=== PATIENT | female | born 1950 | race Caucasian/White ===

== ENCOUNTER → 2017-12-27 | Outpatient (CLI) | payer MEDICARE, BC ==
--- NOTE | 2017-12-30 09:34 | XCELERA REPORT ---
[address] [address] Lower Extremity Arterial Evaluation Name: OJ ANDUJAR Age: 67 yrs Gender: Female : 1950 Patient Status: Outpatient Patient Location: Study Date: 12/27/2017 01:38 PM Procedure: A color flow and duplex scan of the lower extremity arteries was performed bilaterally with velocity and waveform anaylsis. Ankle brachial indicies performed. Reason For Study: PVD Ordering Physician: FRANCESCO RUVALCABA Performed By: Jae Estevez Measurements and Calculations Right Left WARP TESTER PSV 170.6 132.7 cm/sec Prox PFA PSV -248.3 -120.8 cm/sec Prox SFA PSV 158.1 168.9 cm/sec Mid SFA PSV -159.1 -142.4 cm/sec Dist SFA PSV -105.5 -103.7 cm/sec Prox Pop A PSV 92.6 89.9 cm/sec Dist CHELI PSV 92.3 95.9 cm/sec Dist DISPATCH MANAGER PSV 72.0 97.6 cm/sec Frankie Pedis PSV -30.9 -104.2 cm/sec Right Side Arterial Evaluation Normal velocity and triphasic waveforms noted from the Common Femoral artery to the anterior tibial .Biphasic with increased velocity in the Deep Femora artery in the Dorsalis Pedis. 20-49 % stenosis at the Deep Femoral artery. Sequential disease in the Dorsalis Pedis. Ankle Brachial index is 1.14. Left Side Arterial Evaluation Normal velocity and triphasic waveforms noted from the Common Femoral artery to the infrageniculate vessels. 0 % stenosis. Ankle Brachial index is 1.15. Interpretation Summary Mild hemodynamically significant lesions in the right lower extremity only, on duplex imaging, at rest. No hemodynamically significant lesions in the left lower extremity only, on duplex imaging, at rest. : FRANCESCO RUVALCABA > Yash Franklin
== END ==
LOC: SP 13:21
PROVIDERS: ATTEND Podiatrist Foot & Ankle Surgery
DX: I73.9 Peripheral vascular disease, unspecified (principal)
CPT/HCPCS: 93925

== ENCOUNTER → 2018-04-18 | Outpatient (CLI) | payer MEDICARE, BC ==
[2018-04-18 13:57] LABS: ABSOLUTE BASOPHILS # (AUTO) 0.1 10^3/uL (0.0-0.2); ABSOLUTE EOSINOPHILS # (AUTO) 0.2 10^3/uL (0.0-0.6); ABSOLUTE LYMPHOCYTES (AUTO) 1.7 10^3/uL (0.5-4.7); ABSOLUTE MONOCYTES (AUTO) 0.3 10^3/uL (0.1-1.4); ABSOLUTE NEUT (AUTO) 4.7 10^3/uL (1.7-8.2); EOSINOPHILS % (AUTO) 2.8 % (0-6); HEMATOCRIT 39.4 % (36.0-47.0); HEMOGLOBIN 13.4 g/dL (12.0-15.5); LYMPHOCYTES % (AUTO) 24.9 % (13-45); MEAN CORPUSCULAR VOLUME 88 fl (80-97); MONOCYTES % (AUTO) 3.7 % (3-13); PLATELET COUNT 223 10^3/uL (150-450); RED BLOOD COUNT 4.47 10^6/uL (3.72-5.28); RED CELL DISTRIBUTION WIDTH 12.9 % (11.5-14.0); SEGMENTED NEUTROPHILS % (AUTO) 67.6 % (42-78); TOTAL CELLS COUNTED % (AUTO) 100 %; WHITE BLOOD COUNT 6.9 10^3/uL (4.0-10.5)
[2018-04-18 14:23] LABS: ALANINE AMINOTRANSFERASE 25 U/L (9-52); ALBUMIN 3.7 g/dL (3.5-5.0); ALKALINE PHOSPHATASE 69 U/L (38-126); AMYLASE 55 U/L (30-110); ANION GAP 12 (5-19); ASPARTATE AMINO TRANSFERASE 29 U/L (14-36); BILIRUBIN,DIRECT 0.3 mg/dL (0.0-0.4); BILIRUBIN,TOTAL 0.4 mg/dL (0.2-1.3); BLOOD UREA NITROGEN 12 mg/dL (7-20); CALCIUM 8.8 mg/dL (8.4-10.2); CARBON DIOXIDE 29 mmol/L (22-30); CHLORIDE 104 mmol/L (98-107); GLUCOSE 104 mg/dL (75-110); LIPASE 185.7 U/L (23-300); POTASSIUM 4.3 mmol/L (3.6-5.0); SODIUM 144.9 mmol/L (137-145)
== END ==
LOC: LAB 13:45
PROVIDERS: ATTEND Physician Assistant Surgical
DX: R10.13 Epigastric pain (principal); K76.89 Other specified diseases of liver
CPT/HCPCS: 36415; 80053; 82150; 83690; 85025

== ENCOUNTER 2019-02-08 15:03 | Emergency (ER) | payer MEDICARE, BC ==
[2019-02-08] MEDS ORDERED: DIPH/PERTUSS(ACELL)/TETANUS VAC/PF 0.5 ML SYR (>=10YO) IM ONE (15:20)
--- NOTE | 2019-02-08 15:23 | ER Document Report ---
ED Medical Screen (RME) - General Chief Complaint: Leg Injury Stated Complaint: foot pain Time Seen by Provider: 02/08/19 15:19 Primary Care Provider: LINDA KEYS PA-C [Primary Care Provider] - Follow up as needed Mode of Arrival: Wheelchair Information source: Patient Notes: 69-year-old female presents to ED for pain swelling and skin avulsion to the front of the right lower leg ankle and foot. She states she dropped a heavy folding table onto her leg and it went all the way down the leg foot and ankle. She states she is not sure when her last tetanus was but she thinks she needs 1. Patient is alert oriented respirations regular and unlabored speaking in full sentences and is in a wheelchair. Bleeding is under control. I have greeted and performed a rapid initial assessment of this patient. A comprehensive ED assessment and evaluation of the patient, analysis of test results and completion of medical decision making process will be conducted by an additional ED providers. Dictation of this chart was performed using voice recognition software; therefore, there may be some unintended grammatical errors. TRAVEL OUTSIDE OF THE [place] IN LAST 30 DAYS: No - Related Data Allergies/Adverse Reactions: adhesive tape Allergy (Unknown, Verified 02/08/19 15:04) contact dermatitis aspirin [Aspirin] Adverse Reaction (Intermediate, Verified 02/08/19 15:04) Nausea, abd pain Past Medical History - Past Medical History Cardiac Medical History: Reports: Hx Hypercholesterolemia, Hx Hypertension Pulmonary Medical History: Neurological Medical History: Denies: Hx Seizures GI Medical History: Psychiatric Medical History: Reports: Hx Depression Infectious Medical History: Past Surgical History: Reports: Hx Bowel Surgery, Hx Hysterectomy, Hx Orthopedic Surgery - left knee replacement back surgery - Immunizations Hx Diphtheria, Pertussis, Tetanus Vaccination: Yes Physical Exam - Vital signs Vitals: Temp Pulse Resp BP Pulse Ox 97.7 F 65 14 121/61 94 02/08/19 15:07 02/08/19 15:07 02/08/19 15:07 02/08/19 15:07 02/08/19 15:07 Course - Vital Signs Vital signs: Temp Pulse Resp BP Pulse Ox 97.7 F 65 14 121/61 94 02/08/19 15:07 02/08/19 15:07 02/08/19 15:07 02/08/19 15:07 02/08/19 15:07 Doctor's Discharge - Discharge Referrals: LINDA KEYS PA-C [Primary Care Provider] - Follow up as needed
--- NOTE | 2019-02-08 16:49 | RADIOLOGY REPORT (SQ) ---
EXAM DESCRIPTION: FOOT RIGHT COMPLETE COMPLETED DATE/TIME: 02/08/2019 4:09 pm REASON FOR STUDY: dropped a table on the leg COMPARISON: None. NUMBER OF VIEWS: Three views. TECHNIQUE: AP, lateral and oblique radiographic images acquired of the right foot. LIMITATIONS: None. FINDINGS: MINERALIZATION: Normal. BONES: No acute fracture or dislocation. No worrisome bone lesions. JOINTS: Osteoarthritis right 1st metatarsophalangeal joint. SOFT TISSUES: No soft tissue swelling. No foreign body. OTHER: Prominent plantar calcaneal spur IMPRESSION: NEGATIVE STUDY OF THE RIGHT FOOT. NO RADIOGRAPHIC EVIDENCE OF ACUTE INJURY. TECHNICAL DOCUMENTATION: JOB ID: [id number] [employer]- All Rights Reserved Reading location - IP/workstation name: [email or web address]
--- NOTE | 2019-02-08 16:50 | RADIOLOGY REPORT (SQ) ---
EXAM DESCRIPTION: TIBIA FIBULA RIGHT COMPLETED DATE/TIME: 02/08/2019 4:09 pm REASON FOR STUDY: dropped a table on the leg COMPARISON: None. NUMBER OF VIEWS: Two views. TECHNIQUE: Two radiographic images acquired of the right tibia and fibula to include the knee and an kle in at least one projection. LIMITATIONS: None. FINDINGS: MINERALIZATION: Normal. BONES: No acute fracture or dislocation. No worrisome bone lesions. SOFT TISSUES: Soft tissue laceration and swelling in the anterior pretibial soft tissues, lower 3rd. No radiopaque foreign body. No underlying fracture OTHER: No other significant finding. IMPRESSION: Soft tissue swelling and laceration anterior right lower pretibial region without retain ed foreign body or underlying fracture TECHNICAL DOCUMENTATION: JOB ID: [id number] [employer]- All Rights Reserved Reading location - IP/workstation name: [email or web address]
--- NOTE | 2019-02-08 18:54 | ER Document Report ---
ED General - General Chief Complaint: Leg Injury Stated Complaint: foot pain Time Seen by Provider: 02/08/19 15:19 Primary Care Provider: LINDA KEYS PA-C [Primary Care Provider] - Follow up as needed Mode of Arrival: Wheelchair Notes: Patient is a 69-year-old female that presents to the emergency department for chief complaint of right ankle and foot pain after injury. Patient reports that around 2:45 PM, 1 of her tables was leaned up against the wall and fallen down and hit her in the right ankle and foot, as a heavy wooden table. She has been able to walk since then, but has pain associated with it. She describes her pain at this time as a 4 out of 10, describes as an aching sensation. She states it was swollen but that is gone down since elevating her foot. She has noticed bruising, and there was a skin tear, she is not sure of her last tetanus vaccination. Past Medical History: Psoriasis, osteoarthritis Past Surgical History: Bowel resection, left total knee arthroplasty, cholecystectomy, hysterectomy Social History: Former smoker, denies alcohol or drug use. Family History: Reviewed and noncontributory for presenting illness Allergies: Reviewed, see documented allergy list. REVIEW OF SYSTEMS: Other than noted above, the 12 point review of systems was reviewed with the patient and were negative, all pertinent findings are included in the HPI. PHYSICAL EXAMINATION: Vital signs reviewed, nursing noted reviewed. GENERAL: Well-appearing, well-nourished and in no acute distress. HEAD: Atraumatic, normocephalic. EYES: Eyes appear normal, extraocular movements intact, sclera anicteric, conjunctiva are normal. ENT: nares patent, oropharynx clear without exudates. Moist mucous membranes. NECK: Normal range of motion, supple without lymphadenopathy LUNGS: Breath sounds clear to auscultation bilaterally and equal. No wheezes rales or rhonchi. HEART: Regular rate and rhythm without murmurs ABDOMEN: Soft, nontender, normoactive bowel sounds. No rebound, guarding, or rigidity. No masses appreciated. EXTREMITIES: The right ankle, has a skin tear just proximal to the ankle joint anteriorly over the tibia, that is superficial, no deep laceration noted. There is ecchymosis distal to this injury, and tenderness to palpation of the lateral malleolus, but no medial tenderness. There is no significant edema however. Patient does have some discomfort with range of motion of the right ankle. However she has good range of motion overall. Cap refill is less than 3 seconds, pulses intact distally. Sensation and motor intact distally. The rest the patient's extremity exam is grossly unremarkable. NEUROLOGICAL: No focal neurological deficits. Moves all extremities spontaneously Motor and sensory grossly intact on exam. PSYCH: Normal mood, normal affect. SKIN: Warm, Dry, normal turgor, no rashes or lesions noted on exposed skin TRAVEL OUTSIDE OF THE [place] IN LAST 30 DAYS: No - Related Data Allergies/Adverse Reactions: adhesive tape Allergy (Unknown, Verified 02/08/19 15:04) contact dermatitis aspirin [Aspirin] Adverse Reaction (Intermediate, Verified 02/08/19 15:04) Nausea, abd pain Past Medical History - General Information source: Patient - Social History Smoking Status: Never Smoker Frequency of alcohol use: None Drug Abuse: None Family History: Reviewed & Not Pertinent Patient has suicidal ideation: No Patient has homicidal ideation: No - Past Medical History Cardiac Medical History: Reports: Hx Hypercholesterolemia, Hx Hypertension Pulmonary Medical History: Neurological Medical History: Denies: Hx Seizures Renal/ Medical History: Denies: Hx Peritoneal Dialysis GI Medical History: Psychiatric Medical History: Reports: Hx Depression Infectious Medical History: Past Surgical History: Reports: Hx Bowel Surgery, Hx Hysterectomy, Hx Orthopedic Surgery - left knee replacement back surgery - Immunizations Hx Diphtheria, Pertussis, Tetanus Vaccination: Yes Hx Pneumococcal Vaccination: 05/29/15 Physical Exam - Vital signs Vitals: Temp Pulse Resp BP Pulse Ox 97.7 F 65 14 121/61 94 02/08/19 15:07 02/08/19 15:07 02/08/19 15:07 02/08/19 15:07 02/08/19 15:07 Course - Re-evaluation Re-evalutation: Patient seen and examined vital signs reviewed. imaging were ordered as appropriate for the patient's presenting symptoms and complaint, with consideration of any critical or life threatening conditions that may be associated with their obtained history and exam as noted above. Patient was treated with ankle splinting, and tetanus vaccine Results were reviewed when available and demonstrated negative x-rays for fracture The patient was re-evaluated and was stable Evaluation was most consistent with right leg contusion and skin tear, recommend follow-up, and using ankle splint for the next 5 days. Results were discussed with the patient at this point, after careful consideration I feel that that patient can be discharged from the emergency department, the patient was educated treatments and reasons to return to the emergency department based on their presumed diagnosis as noted above, they were advised to followup with a primary care physician in 2-3 days. Patient was agreeable to plan of care. *Note is created using voice recognition software and may contain spelling, syntax or grammatical errors. Foot X-Ray 02/08/19 15:19 IMPRESSION: NEGATIVE STUDY OF THE RIGHT FOOT. NO RADIOGRAPHIC EVIDENCE OF ACUTE INJURY. Tibia/Fibula X-Ray 02/08/19 15:19 IMPRESSION: Soft tissue swelling and laceration anterior right lower pretibial region without retained foreign body or underlying fracture - Vital Signs Vital signs: Temp Pulse Resp BP Pulse Ox 97.7 F 65 14 121/61 94 02/08/19 15:07 02/08/19 15:07 02/08/19 15:07 02/08/19 15:07 02/08/19 15:07 Procedures - Immobilization Right Ankle Pre-Proc Neuro Vasc Exam: Normal Immobilizer type: Ankle stirrup Performed by: PCT Post-Proc Neuro Vasc Exam: Normal Alignment checked and good: Yes Discharge - Discharge Clinical Impression: Skin tear Contusion of right leg Qualifiers: Encounter type: initial encounter Qualified Code(s): S80.11XA - Contusion of right lower leg, initial encounter Condition: Stable Disposition: HOME, SELF-CARE Instructions: Contusion ([facility]) Additional Instructions: Please use the ankle stirrup for the next 5 days, minimize weightbearing, but do not wear it much longer than this, and follow-up with your primary care. Keep it elevated, you may take Tylenol for pain reduction, and use cool compresses for 20 minutes on 20 minutes off to help with any swelling. Referrals: YARY MURDOCK MD [COMMUNITY BASED STAFF] - Follow up in 3-5 days
[2019-02-08 22:11] VITALS: BP 132/76
== END 2019-02-08 19:45 | disposition home or self-care (01) ==
LOC: ER 15:03
PROC: 2W3QX1Z Immobilization of Right Lower Leg using Splint (ICD-10-PCS; principal; 2019-02-08)
DX: S80.11XA Contusion of right lower leg, initial encounter (principal); M25.571 Pain in right ankle and joints of right foot; M79.671 Pain in right foot; W22.03XA Walked into furniture, initial encounter; Z87.891 Personal history of nicotine dependence; I10 Essential (primary) hypertension
CPT/HCPCS: 99283; 90471; 73630; 73590; 90715; 29515; L4350

== ENCOUNTER 2019-10-16 17:08 | Inpatient (IN) | payer MEDICARE, BC ==
[2019-10-16 17:26] LABS: ABSOLUTE LYMPHOCYTES (AUTO) 0.6 10^3/uL (0.5-4.7); ABSOLUTE MONOCYTES (AUTO) 0.5 10^3/uL (0.1-1.4); ABSOLUTE NEUT (AUTO) 7.3 10^3/uL (1.7-8.2); BASOPHILS % (AUTO) 0.2 % (0-2); EOSINOPHILS % (AUTO) 0.3 % (0-6); HEMATOCRIT 39.2 % (36.0-47.0); HEMOGLOBIN 13.9 g/dL (12.0-15.5); LYMPHOCYTES % (AUTO) 7.6 % (13-45); MEAN CORPUSCULAR HEMOGLOBIN 30.4 pg (27.0-33.4); MEAN CORPUSCULAR HGB CONC 35.3 g/dL (32.0-36.0); MEAN CORPUSCULAR VOLUME 86 fl (80-97); MONOCYTES % (AUTO) 5.6 % (3-13); PLATELET COUNT 143 10^3/uL (150-450); RED BLOOD COUNT 4.55 10^6/uL (3.72-5.28); RED CELL DISTRIBUTION WIDTH 13.8 % (11.5-14.0); SEGMENTED NEUTROPHILS % (AUTO) 86.3 % (42-78); TOTAL CELLS COUNTED % (AUTO) 100 %; WHITE BLOOD COUNT 8.4 10^3/uL (4.0-10.5)
[2019-10-16 17:33] LABS: INTERNATIONAL RATION (INR) 0.93; PROTHROMBIN TIME 12.5 SEC (11.4-15.4)
[2019-10-16 17:44] LABS: ALBUMIN 3.9 g/dL (3.5-5.0); ALKALINE PHOSPHATASE 75 U/L (38-126); ANION GAP 12 (5-19); ASPARTATE AMINO TRANSFERASE 27 U/L (14-36); BILIRUBIN,DIRECT 0.3 mg/dL (0.0-0.4); BILIRUBIN,TOTAL 0.7 mg/dL (0.2-1.3); BLOOD UREA NITROGEN 20 mg/dL (7-20); CALCIUM 8.5 mg/dL (8.4-10.2); CARBON DIOXIDE 27 mmol/L (22-30); CHLORIDE 95 mmol/L (98-107); GLUCOSE 106 mg/dL (75-110); POTASSIUM 3.2 mmol/L (3.6-5.0); TOTAL PROTEIN 6.8 g/dL (6.3-8.2)
--- NOTE | 2019-10-16 17:46 | RADIOLOGY REPORT (SQ) ---
EXAM DESCRIPTION: CHEST SINGLE VIEW COMPLETED DATE/TIME: 10/16/2019 5:33 pm REASON FOR STUDY: bed 19 sepsis protocol COMPARISON: 02/02/2016 EXAM PARAMETERS: NUMBER OF VIEWS: One view. TECHNIQUE: Single frontal radiographic view of the chest acquired. RADIATION DOSE: NA LIMITATIONS: None. FINDINGS: LUNGS AND PLEURA: No opacities, masses or pneumothorax. No pleural effusion. MEDIASTINUM AND HILAR STRUCTURES: No masses. Contour normal. HEART AND VASCULAR STRUCTURES: Heart normal in size. Normal vasculature. BONES: No acute findings. HARDWARE: None in the chest. OTHER: No other significant finding. IMPRESSION: NO ACUTE RADIOGRAPHIC FINDING IN THE CHEST. TECHNICAL DOCUMENTATION: JOB ID: [id number]- All Rights Reserved Reading location - IP/workstation name: [email or web address]
[2019-10-16 18:18] LABS: VENOUS BLOOD BASE EXCESS 1.8 mmol/L; VENOUS BLOOD HCO3 26.4 mmol/L (20-32); VENOUS BLOOD PCO2 41.3 mmHg (35-63); VENOUS BLOOD PH 7.42 (7.30-7.42)
[2019-10-16] MEDS ORDERED: NORMAL SALINE 1000 ML 1,000 ML IV ONE ×2 (18:21→22:02)
[2019-10-16] MEDS ORDERED: CEFTRIAXONE 1 GM/D5W RTU 1 GM/50 ML RTUPB IV ONE (18:22)
--- NOTE | 2019-10-16 18:48 | EKG REPORT ---
SEVERITY:- ABNORMAL ECG - SINUS TACHYCARDIA RIGHT BUNDLE BRANCH BLOCK ANTEROLATERAL INFARCT, AGE INDETERMINATE : Confirmed by: Guillaume Roy 16-Oct-2019 18:47:29
[2019-10-16 18:58] LABS: APPEARANCE,URINE SLIGHTLY-CLOUDY; BILIRUBIN,URINE NEGATIVE (NEGATIVE); COLOR,URINE YELLOW; GLUCOSE, URINE NEGATIVE (NEGATIVE); KETONES,URINE NEGATIVE (NEGATIVE); LEUKOCYTE ESTERASE,URINE NEGATIVE (NEGATIVE); NITRITE,URINE NEGATIVE (NEGATIVE); PROTEIN,URINE NEGATIVE (NEGATIVE); URINE SPECIFIC GRAVITY 1.012; UROBILINOGEN,URINE NEGATIVE mg/dL (<2.0)
[2019-10-16] MEDS ORDERED: AZITHROMYCIN INJ 500 MG VIAL IV ONE (22:26)
--- NOTE | 2019-10-17 00:12 | ER Document Report ---
Entered by TED COREAS SCRIBE 10/16/19 1818 Acting as scribe for:LING ANN MD ED General - General Chief Complaint: Shortness Of Breath Stated Complaint: SHORTNESS OF BREATH Time Seen by Provider: 10/16/19 18:05 Primary Care Provider: YARY MURDOCK MD [Primary Care Provider] - Follow up as needed Information source: Patient Notes: 69-year-old female with COPD presents to the emergency department complaining of shortness of breath. Patient states that she has had congestion for the past three days with a cough and thick, yellow sputum. Patient reports that she was diagnosed with the flu and left lower lobe pneumonia on August 30 (1 month ago). Patient explains that after finishing the prescribed medications, she "never felt like I got well". She states that she has not been able to take a deep breath since her pneumonia. Patient reports fever, chills, diaphoresis, nausea, lightheaded and headaches. Patient denies diarrhea, vomiting and skin rashes. Patient stated that she starting "sweating after given Tylenol" today and she felt like she was "about to pass out when standing up". Patient was sent over to the emergency department from her doctors appointment due to her wheezing and shortness of breath. Physicians office tested for influ efren with negative results. Patient received two breathing treatments at her appointment and received another two treatments on the way to the emergency department. TRAVEL OUTSIDE OF THE [place] IN LAST 30 DAYS: No - Related Data Allergies/Adverse Reactions: adhesive tape Allergy (Unknown, Verified 02/08/19 15:04) contact dermatitis aspirin [Aspirin] Adverse Reaction (Intermediate, Verified 02/08/19 15:04) Nausea, abd pain Home Medications: pt has list Past Medical History - General Information source: Patient - Social History Smoking Status: Former Smoker Cigarette use (# per day): No Chew tobacco use (# tins/day): No Frequency of alcohol use: None Drug Abuse: None Family History: Reviewed & Not Pertinent Patient has suicidal ideation: No Patient has homicidal ideation: No - Past Medical History Cardiac Medical History: Reports: Hx Hypercholesterolemia, Hx Hypertension Pulmonary Medical History: Neurological Medical History: GI Medical History: Psychiatric Medical History: Reports: Hx Depression Infectious Medical History: Past Surgical History: Reports: Hx Bowel Surgery, Hx Hysterectomy, Hx Orthopedic Surgery - left knee replacement back surgery - Immunizations Hx Diphtheria, Pertussis, Tetanus Vaccination: Yes Hx Pneumococcal Vaccination: 05/29/15 Review of Systems - Review of Systems Constitutional: See HPI, Chills, Diaphoresis, Fever EENT: No symptoms reported Cardiovascular: No symptoms reported Respiratory: No symptoms reported Gastrointestinal: See HPI, Nausea. denies: Diarrhea, Vomiting Genitourinary: No symptoms reported Female Genitourinary: No symptoms reported Musculoskeletal: No symptoms reported Skin: See HPI. denies: Rash Hematologic/Lymphatic: No symptoms reported Neurological/Psychological: See HPI, Headaches -: Yes All other systems reviewed and negative Physical Exam - Vital signs Vitals: Pulse Ox 94 10/16/19 17:20 - Notes Notes: Physical Exam: General: Alert, appears well. HEENT: Normocephalic. Atraumatic. PERRL. Extraocular movements intact. O ropharynx clear. Neck: Supple. Non-tender. Respiratory: No respiratory distress. Diminished breath sounds bilaterally. Cardiovascular: Regular rate and rhythm. Abdominal: Normal Inspection. Non-tender. No distension. Normal Bowel Sounds. Back: No gross abnormalities. Extremities: Moves all four extremities. Upper extremities: Normal inspection. Normal ROM. Lower extremities: Normal inspection. No edema. Normal ROM. Neurological: Normal cognition. AAOx4. Normal speech. Psychological: Normal affect. Normal Mood. Skin: Hot. Dry. Normal color. Course - Re-evaluation Re-evalutation: 10/17/19 00:09 Patient cough has improved and blood pressure has dropped down to a systolic of 85 requiring a second liter of IV fluids bolus. Patient elevated lactic acid up to 4.1 third test. With that said decided to call for an admission for the patient with probable pneumonia hypotension and cough and elevated lactic acid. - Vital Signs Vital signs: Temp Pulse Resp BP Pulse Ox 97.9 F 82 14 94/56 L 96 10/16/19 21:39 10/16/19 21:37 10/16/19 23:01 10/16/19 23:00 10/16/19 23:01 - Laboratory Result Diagrams: 10/16/19 16:50 10/16/19 16:50 Laboratory results interpreted by me: 10/16/19 10/16/19 10/16/19 16:50 16:50 17:18 Plt Count 143 L Lymph % (Auto) 7.6 L Seg Neutrophils % 86.3 H Sodium 133.5 L Potassium 3.2 L Chloride 95 L Est GFR (MDRD) Non-Af 49 L POC Glucose 114 H Lactic Acid 10/16/19 10/16/19 10/16/19 20:01 21:41 23:10 Plt Count Lymph % (Auto) Seg Neutrophils % Sodium Potassium Chloride Est GFR (MDRD) Non-Af POC Glucose 174 H Lactic Acid 3.7 H 4.1 H - Diagnostic Test Radiology reviewed: Image reviewed, Reports reviewed Radiology results interpreted by me: 10/17/19 00:10 Chest x-ray read by radiologist did not show any acute process. However there are streaky markings noted in the left base which may be due to just chronic changes versus an early development of pneumonia. - EKG Interpretation by Me Additional EKG results interpreted by me: 10/16/19 19:35 Twelve-lead EKG done 10/16/2019 1723 shows sinus tachycardia rate of 109. Right bundle branch block. Anterior lateral infarct age indeterminate. Critical Care Note - Critical Care Note Total time excluding time spent on procedures (mins): 69 - Monitoring pulse oximetry's vital signs with hypotension oxygenation with nasal cannula and monitoring laboratories and lactic acid levels. Discharge - Discharge Clinical Impression: Community acquired pneumonia, Hypotension, Elevated lactic acid level Condition: Fair Disposition: ADMITTED INPATIENT Admitting Provider: Lucita (Hospitalist) Unit Admitted: I[facility]U Referrals: YARY MURDOCK MD [Primary Care Provider] - Follow up as needed I personally performed the services described in the documentation, reviewed and edited the documentation which was dictated to the scribe in my presence, and it accurately records my words and actions.
[2019-10-17] MEDS ORDERED: MAGNESIUM HYDROXIDE SUSP 30 ML UDCUP PO PRN (00:46)
[2019-10-17] MEDS ORDERED: PROMETHAZINE HCL INJ 25 MG/1 ML VIAL IV PRN (00:46)
[2019-10-17] MEDS ORDERED: MAG HYDROX/AL HYDROX/SIMETH SUSP 30 ML UDCUP PO PRN (00:46)
[2019-10-17] MEDS ORDERED: ACETAMINOPHEN 325 MG TABLET PO PRN (00:51)
[2019-10-17] MEDS ORDERED: METHYLPREDNISOLONE INJ 125 MG/2 ML SDV IV ONE (00:51)
[2019-10-17] MEDS ORDERED: LORAZEPAM INJ 2 MG/1 ML VIAL IV PRN (00:51)
[2019-10-17] MEDS ORDERED: GUAIFENESIN SYRP 200 MG/10 ML UDC PO PRN (00:51)
[2019-10-17] MEDS ORDERED: DOPAMINE HCL/DEXTROSE 5%-WATER 800 MG/250 ML RTUINJ IV PRN (00:56)
[2019-10-17] MEDS ORDERED: RINGERS SOLUTION,LACTATED 1,000 ML IV ONE (01:12)
[2019-10-17] MEDS ORDERED: LEVALBUTEROL HCL NEB 1.25 MG/3 ML AMPUL NEB ONE (01:30)
[2019-10-17] MEDS ORDERED: IPRATROPIUM BROMIDE 0.02% NEB 0.5 MG/2.5 ML AMPUL NEB ONE (01:30)
[2019-10-17] MEDS: RINGERS SOLUTION,LACTATED 1,000 ML IV PRN ×2 (03:30→09:58)
--- NOTE | 2019-10-17 03:56 | PDOC H&P ---
History of Present Illness Admission Date/PCP: 10/17/2019 00:18 YARY MURDOCK MD Patient complains of: Dyspnea History of Present Illness: JO ANDUJAR is a 69 year old female who presented the emergency room with a 2-month history of dyspnea. She admits being short of breath since she was d iagnosed with pneumonia and influenza shortly after New Year's. Her dyspnea has been persistent but has been growing notably worse (now severe) over the last 4 days, being accompanied by a cough productive of thick yellow mucus. Her dyspnea has also been associated with a subjective fever with chills, episodes of diaphoresis, headaches, nausea and orthostatic lightheadedness. Her dyspnea has been noted to be increased by exertion and she has not identified any ameliorating factors including the failure of nebulizer therapy to produce improvement. She denies other associated or accompanying signs and symptoms. She admits similar prior episodes related to her COPD and recent pneumonia. She has not identified any additional aggravating or ameliorating factors for her dyspnea. In the emergency room room she was found to have hypoxia requiring supplemental oxygen to maintain adequate O2 saturation and was also noted to have rising lactic acid levels. She was subsequently admitted to the hospital for further evaluation treatment. Past Medical History Cardiac Medical History: Reports: Congestive Heart Failure, Hyperlipidema, Hypertension Denies: Atrial Fibrillation, Coronary Artery Disease, Myocardial Infarction Pulmonary Medical History: Reports: Bronchitis, Chronic Obstructive Pulmonary Disease (COPD), Pneumonia Denies: Asthma EENT Medical History: Reports: Ears - Mild hearing loss Denies: Cataracts, Eyes - Eyeglasses Neurological Medical History: Reports: Other - TIAs Denies: Hemorrhagic CVA, Ischemic CVA, Seizures Endocrine Medical History: Denies: Diabetes Mellitus Type 1, Diabetes Mellitus Type 2, Hyperthyroidism, Hypothyroidism Renal/ Medical History: Denies: Chronic Kidney Disease, Nephrolithiasis Malignancy Medical History: Reports: None GI Medical History: Reports: Gastroesophageal Reflux Disease, Other - Chronic biliary disease Denies: Crohn's Disease, Peptic Ulcer Disease, Ulcerative Colitis Musculoskeltal Medical History: Reports: Arthritis Denies: Fibromyalgia, Gout Skin Medical History: Denies: Eczema, Psoriasis Psychiatric Medical History: Reports: Depression, Tobacco Dependency Denies: Alcohol Dependency, Substance Abuse Traumatic Medical History: Reports: None Hematology: Denies: Anemia, Bleeding Tendencies Infectious Medical History: Reports: None Past Surgical History Past Surgical History: Reports: Cholecystectomy, Hysterectomy, Knee Replacement, Orthopedic Surgery - back surgery, Other - Segmental bowel resection Social History Information Source: Patient Lives with: Alone Smoking Status: Former Smoker Electronic Cigarette use?: No Frequency of Alcohol Use: None Hx Recreational Drug Use: No Drugs: None Hx Prescription Drug Abuse: No - Advance Directive Resuscitation Status: Full Code Surrogate healthcare decision maker:: Kaela Andujar Family History Family History: CAD, CVA, DM, Hypertension. denies: Malignancy Parental Family History Reviewed: Yes Children Family History Reviewed: No Sibling(s) Family History Reviewed.: Yes Medication/Allergy Home Medications: Celecoxib [Celebrex 200 mg Capsule] 200 mg PO DAILY 08/29/12 Escitalopram Oxalate [Lexapro] 10 mg PO DAILY 08/29/12 Simvastatin 20 mg PO QHS 01/07/15 Albuterol Sulfate [Proair HFA Inhalation Aerosol 8.5 gm MDI] 2 puff IH QID 02/02/16 Budesonide/Formoterol Fumarate [Symbicort HFA 160-4.5 mcg Inhaler 6 gm] 2 puff IH Q12 02/02/16 Cholecalciferol (Vitamin D3) [Vitamin D3] 2,000 unit PO DAILY 02/02/16 Clopidogrel Bisulfate [Plavix 75 mg Tablet] 75 mg PO DAILY 02/02/16 Gabapentin 200 mg PO TID 02/02/16 Linaclotide [Linzess 145 Mcg Capsule] 145 mcg PO DAILY 02/02/16 Loratadine [Allerclear] 10 mg PO DAILY 02/02/16 Morphine Sulfate/Naltrexone [Embeda ER 20-0.8 mg Capsule] 1 cap PO QAM 02/02/16 Tiotropium [place] [Spiriva Handihaler 5 Cap/Kit (18 Mcg/Cap)] 1 cap IH DAILY 02/02/16 Valsartan/Hydrochlorothiazide [Diovan Hct 160-12.5 mg Tab] 1 tab PO DAILY 02/02/16 Trazodone HCl 100 mg PO HSP PRN #300 tablet 02/03/16 Allergies/Adverse Reactions: adhesive tape Allergy (Unknown, Verified 02/08/19 15:04) contact dermatitis aspirin [Aspirin] Adverse Reaction (Intermediate, Verified 02/08/19 15:04) Nausea, abd pain Review of Systems Constitutional: PRESENT: as per HPI, chills, fever(s), headache(s), other - Diap horesis Eyes: ABSENT: visual disturbances, other - Eye pain Ears: ABSENT: hearing changes, other - Ear pain Nose, Mouth, and Throat: PRESENT: headache(s). ABSENT: mouth pain, sore throat Cardiovascular: PRESENT: dyspnea on exertion. ABSENT: chest pain, orthropnea, palpitations Respiratory: PRESENT: as per HPI, cough, dyspnea, sputum. ABSENT: hemoptysis Gastrointestinal: ABSENT: abdominal pain, constipation, diarrhea, nausea, vomiting Genitourinary: ABSENT: dysuria, hematuria Musculoskeletal: ABSENT: back pain, joint swelling, muscle weakness Integumentary: ABSENT: pruritus, rash Neurological: ABSENT: confusion, convulsions, focal weakness, memory loss, syncope Psychiatric: ABSENT: anxiety, depression Endocrine: ABSENT: cold intolerance, heat intolerance, polydipsia, polyphagia, polyuria Hematologic/Lymphatic: ABSENT: easy bleeding, easy bruising Allergic/Immunologic: ABSENT: seasonal rhinorrhea Physical Exam Vital Signs: Temp Pulse Resp BP Pulse Ox 97.9 F 82 14 94/56 L 96 10/16/19 21:39 10/16/19 21:37 10/16/19 23:01 10/16/19 23:00 10/16/19 23:01 Intake & Output 10/15/19 10/16/19 10/17/19 23:59 23:59 23:59 Intake Total 1050 Balance 1050 Weight 58.6 kg General appearance: PRESENT: no acute distress, cooperative Head exam: PRESENT: atraumatic, normocephalic Eye exam: PRESENT: conjunctiva pink. ABSENT: conjunctival injection, scleral icterus Ear exam: PRESENT: normal external ear exam. ABSENT: bleeding, drainage Mouth exam: PRESENT: dry mucosa, neck supple Neck exam: ABSENT: thyromegaly, tracheal deviation Respiratory exam: PRESENT: decreased breath sounds - Mildly decreased breath sounds noted throughout all [place], prolonged expiratory phas - Mildly prolonged expiratory phase noted, symmetrical, wheezes - Mild expiratory wheezes noted Cardiovascular exam: PRESENT: RRR. ABSENT: clicks, gallop, rubs Pulses: PRESENT: normal radial pulses, normal dorsalis pedis pul Vascular exam: PRESENT: normal capillary refill GI/Abdominal exam: PRESENT: normal bowel sounds, soft Rectal exam: PRESENT: deferred Extremities exam: ABSENT: joint swelling, pedal edema Musculoskeletal exam: ABSENT: deformity, dislocation Neurological exam: PRESENT: alert, oriented to person, oriented to place, oriented to time, oriented to situation, CN II-XII grossly intact. ABSENT: motor sensory deficit Psychiatric exam: PRESENT: appropriate affect, normal mood Skin exam: PRESENT: dry, intact, warm. ABSENT: jaundice, rash, urticaria Results Laboratory Results: 10/16/19 16:50 10/16/19 16:50 10/16/19 10/16/19 10/16/19 16:50 16:50 17:30 WBC 8.4 RBC 4.55 Hgb 13.9 Hct 39.2 MCV 86 MCH 30.4 MCHC 35.3 RDW 13.8 Plt Count 143 L Seg Neutrophils % 86.3 H VBG pH 7.42 VBG pCO2 41.3 VBG HCO3 26.4 VBG Base Excess 1.8 Sodium 133.5 L Potassium 3.2 L Chloride 95 L Carbon Dioxide 27 Anion Gap 12 BUN 20 Creatinine 1.09 Est GFR ( Amer) > 60 Glucose 106 Lactic Acid Calcium 8.5 Total Bilirubin 0.7 AST 27 Alkaline Phosphatase 75 Total Protein 6.8 Albumin 3.9 Urine Color Urine Appearance Urine pH Ur Specific [place] Urine Protein Urine Glucose (UA) Urine Ketones Urine Blood Urine Nitrite Ur Leukocyte Esterase Urine WBC (Auto) Urine RBC (Auto) 10/16/19 10/16/19 10/16/19 17:30 18:35 20:01 WBC RBC Hgb Hct MCV MCH MCHC RDW Plt Count Seg Neutrophils % VBG pH VBG pCO2 VBG HCO3 VBG Base Excess Sodium Potassium Chloride Carbon Dioxide Anion Gap BUN Creatinine Est GFR ( Amer) Glucose Lactic Acid 1.8 3.7 H Calcium Total Bilirubin AST Alkaline Phosphatase Total Protein Albumin Urine Color YELLOW Urine Appearance SLIGHTLY-CLOUDY Urine pH 5.0 Ur Specific [place] 1.012 Urine Protein NEGATIVE Urine Glucose (UA) NEGATIVE Urine Ketones NEGATIVE Urine Blood NEGATIVE Urine Nitrite NEGATIVE Ur Leukocyte Esterase NEGATIVE Urine WBC (Auto) 1 Urine RBC (Auto) 2 10/16/19 23:10 WBC RBC Hgb Hct MCV MCH MCHC RDW Plt Count Seg Neutrophils % VBG pH VBG pCO2 VBG HCO3 VBG Base Excess Sodium Potassium Chloride Carbon Dioxide Anion Gap BUN Creatinine Est GFR ( Amer) Glucose Lactic Acid 4.1 H Calcium Total Bilirubin AST Alkaline Phosphatase Total Protein Albumin Urine Color Urine Appearance Urine pH Ur Specific [place] Urine Protein Urine Glucose (UA) Urine Ketones Urine Blood Urine Nitrite Ur Leukocyte Esterase Urine WBC (Auto) Urine RBC (Auto) 10/16/19 16:50 Troponin I 0.012 Impressions: Chest X-Ray 10/16/19 17:10 IMPRESSION: NO ACUTE RADIOGRAPHIC FINDING IN THE CHEST. Assessment and Plan - Diagnosis (1) Acute exacerbation of chronic obstructive pulmonary disease Is this a current diagnosis for this admission?: Yes (2) Elevated lactic acid level Is this a current diagnosis for this admission?: Yes (3) Hypotension Qualifiers: Hypotension type: unspecified hypotension type Qualified Code(s): I95.9 - Hypotension, unspecified Is this a current diagnosis for this admission?: Yes (4) HTN (hypertension) Qualifiers: Hypertension type: essential hypertension Qualified Code(s): I10 - Essential (primary) hypertension Is this a current diagnosis for this admission?: Yes (5) Hyperlipidemia Qualifiers: Hyperlipidemia type: unspecified Qualified Code(s): E78.5 - Hyperlipidemia, unspecified Is this a current diagnosis for this admission?: Yes (6) Diastolic CHF Qualifiers: Heart failure chronicity: chronic Qualified Code(s): I50.32 - Chronic diastolic (congestive) heart failure Is this a current diagnosis for this admission?: Yes - Plan Summary Summary: Patient is admitted to the [facility] where she will receive routine supportive and symptomatic cares. She will be treated with aggressive pulmonary toilet utilizing nebulized Xopenex, Atrovent, Pulmicort and Mucomyst. She will be treated empirically with IV antibiotics initially using cefepime. She will be treated with high-volume IV fluids initially. Serum lactic acid levels will be followed. Patient will be treated with IV fluids and her blood pressure and heart rate will be monitored frequently. CBCs, metabolic profiles and magnesium levels be followed on a regular basis as appropriate. Patient's current home medications especially those for hypertension will be withheld at the present time, as she is currently somewhat hypotensive. I have personally reviewed the patient's chest x-ray and found that it does not show any acute cardiopulmonary disease. I have personally interpreted the patient's EKG and found no evidence of acute myocardial ischemia or cardiac injury, a right bundle branch block and sinus tachycardia were noted. Patient received Ativan 0.5 mg IV every 4 hours as needed for anxiety. - Time Time Spent with patient: 25-34 minutes Medications reviewed and adjusted accordingly: Yes Anticipated discharge: Home - Inpatient Certification Based on my medical assessment, after consideration of the patient's comorbidities, presenting symptoms, or acuity I expect that the services needed warrant INPATIENT care.: Yes I certify that my determination is in accordance with my understanding of Medicare's requirements for reasonable and necessary INPATIENT services [42 CFR 412.3e].: Yes Medical Necessity: Need Close Monitoring Due to Risk of Patient Decompensation, Need For IV Fluids, Need For Continuous Telemetry Monitoring, Need for Nebulizer Therapy and Monitoring of Response, Need for IV Antibiotics, Risk of Complication if Not Cared For in Hospital
[2019-10-17] MEDS ORDERED: CEFEPIME 2 GM/D5W RTU 2 GM/50 ML RTUPB IV ONE (05:35)
[2019-10-17] MEDS: HEPARIN SOD (PORCINE) 5,000 UNIT/ML 1 ML VIAL SUBCUT SCH ×3 (05:57→21:34)
[2019-10-17] MEDS ORDERED: CEFEPIME 2 GM/D5W RTU 2 GM/50 ML RTUPB IV SCH (06:00)
[2019-10-17] MEDS: IPRATROPIUM BROMIDE 0.02% NEB 0.5 MG/2.5 ML AMPUL NEB SCH ×3 (07:41→23:55)
[2019-10-17] MEDS: ACETYLCYSTEINE 20% SOLN 800 MG/4 ML VIAL.NEB NEB SCH ×2 (07:42→19:52)
[2019-10-17] MEDS: BUDESONIDE NEB 0.5 MG/2 ML AMPUL NEB SCH ×2 (07:42→19:51)
[2019-10-17] MEDS: LEVALBUTEROL HCL NEB 1.25 MG/3 ML AMPUL NEB SCH ×3 (07:42→23:55)
[2019-10-17] MEDS: METHYLPREDNISOLONE INJ 40 MG/1 ML SDV IV SCH ×3 (08:15→19:57)
[2019-10-17] MEDS ORDERED: PHARMACY COMMUNICATION ORDER MC NR (09:30)
--- NOTE | 2019-10-17 09:31 | PDOC PROGRESS REPORT ---
Subjective Progress Note for:: 10/17/19 Subjective:: Patient's legs are quite painful. She does have restless leg syndrome. Her daughter is rubbing her legs. Still with very congested breath sounds. Reason For Visit: ACUTE EXACERBATION OF COPD,HYPOTENSION Physical Exam Vital Signs: Temp Pulse Resp BP Pulse Ox 98.1 F 74 16 116/82 94 10/17/19 07:38 10/17/19 07:42 10/17/19 07:42 10/17/19 07:38 10/17/19 07:42 Intake & Output 10/16/19 10/17/19 10/18/19 06:59 06:59 06:59 Intake Total 3100 Balance 3100 Weight 58.1 kg General appearance: PRESENT: cooperative, mild distress, well-developed, well- nourished Head exam: PRESENT: atraumatic, normocephalic Respiratory exam: PRESENT: rhonchi - Rhonchorous breath sounds, symmetrical, unlabored. ABSENT: rales, tachypnea, wheezes Cardiovascular exam: PRESENT: RRR, +S1, +S2. ABSENT: diastolic murmur, systolic murmur GI/Abdominal exam: PRESENT: normal bowel sounds, soft. ABSENT: distended, guarding, tenderness Rectal exam: PRESENT: deferred Extremities exam: ABSENT: pedal edema Musculoskeletal exam: PRESENT: ambulatory. ABSENT: deformity Neurological exam: PRESENT: alert, awake, oriented to person, oriented to place, oriented to time, oriented to situation, CN II-XII grossly intact - Patient wears glasses Psychiatric exam: PRESENT: appropriate affect - Affect reflects her discomfort. ABSENT: agitated, anxious Focused psych exam: ABSENT: delusional, restlessness Skin exam: PRESENT: dry, normal color, warm. ABSENT: rash Results Laboratory Results: 10/16/19 16:50 10/16/19 16:50 10/16/19 10/16/19 10/16/19 16:50 16:50 17:30 WBC 8.4 RBC 4.55 Hgb 13.9 Hct 39.2 MCV 86 MCH 30.4 MCHC 35.3 RDW 13.8 Plt Count 143 L Seg Neutrophils % 86.3 H VBG pH 7.42 VBG pCO2 41.3 VBG HCO3 26.4 VBG Base Excess 1.8 Sodium 133.5 L Potassium 3.2 L Chloride 95 L Carbon Dioxide 27 Anion Gap 12 BUN 20 Creatinine 1.09 Est GFR ( Amer) > 60 Glucose 106 Lactic Acid Calcium 8.5 Total Bilirubin 0.7 AST 27 Alkaline Phosphatase 75 Total Protein 6.8 Albumin 3.9 Urine Color Urine Appearance Urine pH Ur Specific [place] Urine Protein Urine Glucose (UA) Urine Ketones Urine Blood Urine Nitrite Ur Leukocyte Esterase Urine WBC (Auto) Urine RBC (Auto) 10/16/19 10/16/19 10/16/19 17:30 18:35 20:01 WBC RBC Hgb Hct MCV MCH MCHC RDW Plt Count Seg Neutrophils % VBG pH VBG pCO2 VBG HCO3 VBG Base Excess Sodium Potassium Chloride Carbon Dioxide Anion Gap BUN Creatinine Est GFR ( Amer) Glucose Lactic Acid 1.8 3.7 H Calcium Total Bilirubin AST Alkaline Phosphatase Total Protein Albumin Urine Color YELLOW Urine Appearance SLIGHTLY-CLOUDY Urine pH 5.0 Ur Specific [place] 1.012 Urine Protein NEGATIVE Urine Glucose (UA) NEGATIVE Urine Ketones NEGATIVE Urine Blood NEGATIVE Urine Nitrite NEGATIVE Ur Leukocyte Esterase NEGATIVE Urine WBC (Auto) 1 Urine RBC (Auto) 2 10/16/19 23:10 WBC RBC Hgb Hct MCV MCH MCHC RDW Plt Count Seg Neutrophils % VBG pH VBG pCO2 VBG HCO3 VBG Base Excess Sodium Potassium Chloride Carbon Dioxide Anion Gap BUN Creatinine Est GFR ( Amer) Glucose Lactic Acid 4.1 H Calcium Total Bilirubin AST Alkaline Phosphatase Total Protein Albumin Urine Color Urine Appearance Urine pH Ur Specific [place] Urine Protein Urine Glucose (UA) Urine Ketones Urine Blood Urine Nitrite Ur Leukocyte Esterase Urine WBC (Auto) Urine RBC (Auto) 10/16/19 16:50 Troponin I 0.012 Impressions: Chest X-Ray 10/16/19 17:10 IMPRESSION: NO ACUTE RADIOGRAPHIC FINDING IN THE CHEST. Assessment and Plan - Diagnosis (1) Acute exacerbation of chronic obstructive pulmonary disease Is this a current diagnosis for this admission?: Yes (2) Elevated lactic acid level Is this a current diagnosis for this admission?: Yes (3) Hypotension Qualifiers: Hypotension type: unspecified hypotension type Qualified Code(s): I95.9 - Hypotension, unspecified Is this a current diagnosis for this admission?: Yes (4) Diastolic CHF Qualifiers: Heart failure chronicity: chronic Qualified Code(s): I50.32 - Chronic diastolic (congestive) heart failure Is this a current diagnosis for this admission?: Yes (5) HTN (hypertension) Qualifiers: Hypertension type: essential hypertension Qualified Code(s): I10 - Essential (primary) hypertension Is this a current diagnosis for this admission?: Yes (6) Hyperlipidemia Qualifiers: Hyperlipidemia type: unspecified Qualified Code(s): E78.5 - Hyperlipidemia, unspecified Is this a current diagnosis for this admission?: Yes (7) Restless leg syndrome Is this a current diagnosis for this admission?: Yes (8) Opiate dependence Is this a current diagnosis for this admission?: Yes (9) Constipation due to opioid therapy Is this a current diagnosis for this admission?: Yes (10) Chronic pain Is this a current diagnosis for this admission?: Yes - Plan Summary Summary: Patient is admitted to the [facility] where she will receive routine supportive and symptomatic cares. She will be treated with aggressive pulmonary toilet utilizing nebulized Xopenex, Atrovent, Pulmicort and Mucomyst. She will be treated empirically with IV antibiotics initially using cefepime. She will be treated with high-volume IV fluids initially. Serum lactic acid levels will be followed. Patient will be treated with IV fluids and her blood pressure and heart rate will be monitored frequently. CBCs, metabolic profiles and magnesium levels be followed on a regular basis as appropriate. Patient's current home medications especially those for hypertension will be withheld at the present time, as she is currently somewhat hypotensive. I have personally reviewed the patient's chest x-ray and found that it does not show any acute cardiopulmonary disease. I have personally interpreted the patient's EKG and found no evidence of acute myocardial ischemia or cardiac injury, a right bundle branch block and sinus tachycardia were noted. Patient received Ativan 0.5 mg IV every 4 hours as needed for anxiety. 10/17/2019-the patient was inquiring about her regular medications. Medications were reconciled and she is back on her chronic therapy. Initial plan is as above and I will reassess tomorrow. - Time Time Spent with patient: Less than 15 minutes Medications reviewed and adjusted accordingly: Yes Anticipated discharge: Home
[2019-10-17] MEDS: ROPINIROLE HCL 1 MG TABLET PO SCH ×2 (09:57→21:34)
[2019-10-17] MEDS: DOCUSATE SODIUM 100 MG CAPSULE PO SCH ×2 (09:57→18:00)
[2019-10-17] MEDS: HYDROCHLOROTHIAZIDE 12.5 MG TABLET PO SCH (09:57)
[2019-10-17] MEDS: MORPHINE SULFATE SR 15 MG TABLET PO SCH ×2 (09:57→21:32)
[2019-10-17] MEDS: ESCITALOPRAM OXALATE 10 MG TABLET PO SCH (09:58)
[2019-10-17] MEDS: LORATADINE 10 MG TABLET PO SCH (09:58)
[2019-10-17] MEDS: FAMOTIDINE 20 MG TABLET PO SCH ×2 (09:58→21:34)
[2019-10-17] MEDS: VALSARTAN 160 MG TABLET PO SCH (09:58)
[2019-10-17] MEDS: CEFEPIME HCL 2 GM in DEXTROSE 5%-WATER 50 ML IV SCH (18:01)
[2019-10-17] MEDS: LEVALBUTEROL HCL NEB 0.63 MG/3 ML AMPUL NEB PRN (19:52)
[2019-10-17] MEDS: TRAZODONE HCL 50 MG TABLET PO SCH (21:32)
[2019-10-17] MEDS: SIMVASTATIN 10 MG TABLET PO SCH (21:32)
[2019-10-18] MEDS: HEPARIN SOD (PORCINE) 5,000 UNIT/ML 1 ML VIAL SUBCUT SCH ×3 (05:20→22:04)
[2019-10-18] MEDS: CEFEPIME HCL 2 GM in DEXTROSE 5%-WATER 50 ML IV SCH ×2 (05:20→17:45)
[2019-10-18 06:15] LABS: HEMOGLOBIN 12.3 g/dL (12.0-15.5)
[2019-10-18 06:30] LABS: MEAN CORPUSCULAR HEMOGLOBIN 29.3 pg (27.0-33.4); MEAN CORPUSCULAR HGB CONC 34.1 g/dL (32.0-36.0); MEAN CORPUSCULAR VOLUME 86 fl (80-97); PLATELET COUNT 132 10^3/uL (150-450); RED BLOOD COUNT 4.18 10^6/uL (3.72-5.28); RED CELL DISTRIBUTION WIDTH 13.8 % (11.5-14.0)
[2019-10-18 06:55] LABS: ANION GAP 9 (5-19); BLOOD UREA NITROGEN 18 mg/dL (7-20); CALCIUM 8.5 mg/dL (8.4-10.2); CARBON DIOXIDE 28 mmol/L (22-30); CHLORIDE 106 mmol/L (98-107); CHOLESTEROL 125.43 mg/dL (0-200); GLUCOSE 145 mg/dL (75-110); POTASSIUM 3.5 mmol/L (3.6-5.0); TRIGLYCERIDES 76 mg/dL (<150)
[2019-10-18 07:06] LABS: DIRECT LDL 70 mg/dL (<100)
[2019-10-18] MEDS: IPRATROPIUM BROMIDE 0.02% NEB 0.5 MG/2.5 ML AMPUL NEB SCH ×2 (07:35→15:57)
[2019-10-18] MEDS: LEVALBUTEROL HCL NEB 1.25 MG/3 ML AMPUL NEB SCH (07:35)
[2019-10-18] MEDS: ACETYLCYSTEINE 20% SOLN 800 MG/4 ML VIAL.NEB NEB SCH ×2 (07:36→20:11)
[2019-10-18] MEDS: BUDESONIDE NEB 0.5 MG/2 ML AMPUL NEB SCH ×2 (07:36→20:11)
[2019-10-18] MEDS: HYDROCHLOROTHIAZIDE 12.5 MG TABLET PO SCH (10:13)
[2019-10-18] MEDS: DOCUSATE SODIUM 100 MG CAPSULE PO SCH ×2 (10:13→17:47)
[2019-10-18] MEDS: VALSARTAN 160 MG TABLET PO SCH (10:13)
[2019-10-18] MEDS: LORATADINE 10 MG TABLET PO SCH (10:13)
[2019-10-18] MEDS: FAMOTIDINE 20 MG TABLET PO SCH ×2 (10:13→22:03)
[2019-10-18] MEDS: ESCITALOPRAM OXALATE 10 MG TABLET PO SCH (10:13)
[2019-10-18] MEDS: MORPHINE SULFATE SR 15 MG TABLET PO SCH ×2 (10:13→22:03)
[2019-10-18] MEDS: ROPINIROLE HCL 1 MG TABLET PO SCH ×2 (10:15→22:07)
[2019-10-18] MEDS ORDERED: (PENDING PHARMACY ID) (Linaclotide 145 MCG) PO SCH (10:30)
[2019-10-18 10:38] LABS: CREATINE KINASE MB 4.1 ng/mL (<4.55); TROPONIN I 0.016 ng/mL
[2019-10-18] MEDS ORDERED: NITROGLYCERIN 0.4 MG/TAB 25 TAB/BOTTLE ONE (11:01)
[2019-10-18] MEDS ORDERED: NITROGLYCERIN 0.4 MG/TAB 25 TAB/BOTTLE SL PRN (11:01)
--- NOTE | 2019-10-18 11:17 | PDOC PROGRESS REPORT ---
Subjective Progress Note for:: 10/18/19 Subjective:: I was called by the patient's nurse to report that the patient was having central chest tightness with discomfort in her left arm. Reason For Visit: ACUTE EXACERBATION OF COPD,HYPOTENSION Chest pain Physical Exam Vital Signs: Temp Pulse Resp BP Pulse Ox 97.9 F 103 H 20 131/55 H 97 10/18/19 08:16 10/18/19 08:16 10/18/19 08:16 10/18/19 08:16 10/18/19 08:16 Intake & Output 10/17/19 10/18/19 10/19/19 06:59 06:59 06:59 Intake Total 3100 3800 Output Total 1 Balance 3100 3799 Weight 58.1 kg 61.3 kg General appearance: PRESENT: cooperative, well-developed, other - Well-developed 69-year-old female in moderate distress Head exam: PRESENT: atraumatic, normocephalic Eye exam: PRESENT: conjunctiva pink. ABSENT: scleral icterus Ear exam: PRESENT: normal external ear exam. ABSENT: bleeding, drainage Neck exam: PRESENT: full ROM. ABSENT: carotid bruit, JVD, lymphadenopathy Respiratory exam: PRESENT: clear to auscultation nicol, symmetrical, unlabored. ABSENT: rales, rhonchi, tachypnea, wheezes Cardiovascular exam: PRESENT: RRR, +S1, +S2 GI/Abdominal exam: PRESENT: normal bowel sounds, soft. ABSENT: distended, guarding, tenderness Rectal exam: PRESENT: deferred Gentrourinary exam: ABSENT: indwelling catheter Extremities exam: PRESENT: full ROM. ABSENT: joint swelling, pedal edema Musculoskeletal exam: PRESENT: ambulatory, full ROM, normal inspection. ABSENT: deformity Neurological exam: PRESENT: alert, awake, oriented to person, oriented to place, oriented to time, oriented to situation, CN II-XII grossly intact Psychiatric exam: PRESENT: anxious. ABSENT: agitated Results Laboratory Results: 10/18/19 04:18 10/18/19 06:06 10/18/19 10/18/19 10/18/19 04:18 06:06 06:06 WBC 13.0 H RBC 4.18 Hgb 12.3 Hct 36.0 MCV 86 MCH 29.3 MCHC 34.1 RDW 13.8 Plt Count 132 L Sodium 142.5 Potassium 3.5 L Chloride 106 Carbon Dioxide 28 Anion Gap 9 BUN 18 Creatinine 0.62 Est GFR ( Amer) > 60 Glucose 145 H Calcium 8.5 Magnesium 2.1 Triglycerides 76 Cholesterol 125.43 LDL Cholesterol Direct 70 VLDL Cholesterol 15.0 HDL Cholesterol 50 TSH 0.03 L 10/16/19 10/18/19 10/18/19 16:50 04:18 09:43 Creatine Kinase 62 CK-MB (CK-2) Troponin I 0.012 NT-Pro-B Natriuret Pep 2340 H 10/18/19 09:43 Creatine Kinase CK-MB (CK-2) 4.10 Troponin I 0.016 NT-Pro-B Natriuret Pep Impressions: Chest X-Ray 10/16/19 17:10 IMPRESSION: NO ACUTE RADIOGRAPHIC FINDING IN THE CHEST. Assessment and Plan - Diagnosis (1) Angina at rest Is this a current diagnosis for this admission?: Yes (2) Acute exacerbation of chronic obstructive pulmonary disease Is this a current diagnosis for this admission?: Yes (3) Elevated lactic acid level Is this a current diagnosis for this admission?: Yes (4) Hypotension Qualifiers: Hypotension type: unspecified hypotension type Qualified Code(s): I95.9 - Hypotension, unspecified Is this a current diagnosis for this admission?: Yes (5) Diastolic CHF Qualifiers: Heart failure chronicity: chronic Qualified Code(s): I50.32 - Chronic diastolic (congestive) heart failure Is this a current diagnosis for this admission?: Yes (6) HTN (hypertension) Qualifiers: Hypertension type: essential hypertension Qualified Code(s): I10 - Essential (primary) hypertension Is this a current diagnosis for this admission?: Yes (7) Hyperlipidemia Qualifiers: Hyperlipidemia type: unspecified Qualified Code(s): E78.5 - Hyperlipidemia, unspecified Is this a current diagnosis for this admission?: Yes (8) Restless leg syndrome Is this a current diagnosis for this admission?: Yes (9) Opiate dependence Is this a current diagnosis for this admission?: Yes (10) Constipation due to opioid therapy Is this a current diagnosis for this admission?: Yes (11) Chronic pain Is this a current diagnosis for this admission?: Yes - Plan Summary Summary: Patient is admitted to the [facility] where she will receive routine supportive and symptomatic cares. She will be treated with aggressive pulmonary toilet utilizing nebulized Xopenex, Atrovent, Pulmicort and Mucomyst. She will be treated empirically with IV antibiotics initially using cefepime. She will be treated with high-volume IV fluids initially. Serum lactic acid levels will be followed. Patient will be treated with IV fluids and her blood pressure and heart rate will be monitored frequently. CBCs, metabolic profiles and magnesium levels be followed on a regular basis as appropriate. Patient's current home medications especially those for hypertension will be withheld at the present time, as she is currently somewhat hypotensive. I have personally reviewed the patient's chest x-ray and found that it does not show any acute cardiopulmonary disease. I have personally interpreted the patient's EKG and found no evidence of acute myocardial ischemia or cardiac injury, a right bundle branch block and sinus tachycardia were noted. Patient received Ativan 0.5 mg IV every 4 hours as needed for anxiety. 10/17/2019-the patient was inquiring about her regular medications. Medications were reconciled and she is back on her chronic therapy. Initial plan is as above and I will reassess tomorrow. 10/18/2019 Angina-the patient was having central chest pressure relieved by sublingual nitroglycerin. EKG showed Q waves in the lateral leads but the patient denies any history of myocardial infarction. Blood pressure is stable and so I have discontinued the dopamine infusion. The patient was seen at [facility] for work-up 2 years ago and I have asked Dr. Morse to consult. She is already on an angiotensin receptor madelin. She is allergic to aspirin. She may benefit from a beta-madelin and I will discuss with Dr. Morse in the morning. She is also already on statin therapy. An echocardiogram has been ordered. After 2 sublingual nitroglycerin tablets the pain was much improved. If the patient complains of discomfort again we will utilize nitroglycerin paste. Exacerbation of COPD-she is much improved. I will start her on inhaler therapy with Trelegy and discontinue ipratropium and budesonide. I will also discontinue acetylcysteine and continue steroid therapy with prednisone. Hypertension-the hypotension has resolved. The patient is off dopamine. We will continue her baseline medications at this time. Possible addition of beta- madelin therapy based on cardiology consult. Possible history of diastolic heart failure-the patient is not very sure of the exact diagnosis of heart failure. She had an echo 2 years ago and she believes that it was normal. We have ordered an echocardiogram today and Dr. Morse will interpret. We will continue the same treatment for the restless legs, chronic pain, opiate dependence and opiate-induced constipation. - Time Total Critical Time (Minutes): 45 Medications reviewed and adjusted accordingly: Yes
[2019-10-18] MEDS: PANTOPRAZOLE SODIUM 20 MG TABLET.DR PO SCH (11:21)
[2019-10-18] MEDS ORDERED: NORMAL SALINE 1000 ML 1,000 ML IV PRN (11:23)
[2019-10-18 15:29] LABS: CREATINE KINASE MB 3.72 ng/mL (<4.55); TROPONIN I 0.016 ng/mL
[2019-10-18 18:35] LABS: CREATINE KINASE MB 3.44 ng/mL (<4.55); TROPONIN I 0.016 ng/mL
[2019-10-18] MEDS ORDERED: POTASSIUM CHLORIDE 10 MEQ TABLET.ER PO ONE (19:57)
--- NOTE | 2019-10-18 21:19 | EKG REPORT ---
SEVERITY:- ABNORMAL ECG - SINUS RHYTHM ATRIAL PREMATURE COMPLEX NONSPECIFIC INTRAVENTRICULAR CONDUCTION DELAY LATERAL INFARCT, AGE INDETERMINATE : Confirmed by: Guillaume Roy 18-Oct-2019 21:18:45
[2019-10-18] MEDS: SIMVASTATIN 10 MG TABLET PO SCH (22:03)
[2019-10-18] MEDS: GUAIFENESIN 600 MG TABLET.SA PO SCH (22:04)
[2019-10-18] MEDS: TRAZODONE HCL 50 MG TABLET PO SCH (22:04)
[2019-10-19] MEDS: CEFEPIME HCL 2 GM in DEXTROSE 5%-WATER 50 ML IV SCH ×2 (05:05→17:14)
[2019-10-19] MEDS: HEPARIN SOD (PORCINE) 5,000 UNIT/ML 1 ML VIAL SUBCUT SCH ×3 (05:05→21:57)
[2019-10-19 06:52] LABS: ANION GAP 6 (5-19); BLOOD UREA NITROGEN 18 mg/dL (7-20); CALCIUM 8.3 mg/dL (8.4-10.2); CARBON DIOXIDE 31 mmol/L (22-30); CHLORIDE 104 mmol/L (98-107); GLUCOSE 73 mg/dL (75-110); POTASSIUM 3.4 mmol/L (3.6-5.0)
[2019-10-19 07:15] LABS: HEMATOCRIT 32.2 % (36.0-47.0); HEMOGLOBIN 11.2 g/dL (12.0-15.5); MEAN CORPUSCULAR HEMOGLOBIN 30.2 pg (27.0-33.4); MEAN CORPUSCULAR HGB CONC 34.8 g/dL (32.0-36.0); MEAN CORPUSCULAR VOLUME 87 fl (80-97); PLATELET COUNT 134 10^3/uL (150-450); RED BLOOD COUNT 3.72 10^6/uL (3.72-5.28); RED CELL DISTRIBUTION WIDTH 13.8 % (11.5-14.0); WHITE BLOOD COUNT 10.3 10^3/uL (4.0-10.5)
[2019-10-19] MEDS: POTASSIUM CHLORIDE 10 MEQ TABLET.ER PO SCH (09:15)
[2019-10-19] MEDS: DOCUSATE SODIUM 100 MG CAPSULE PO SCH ×2 (09:15→17:14)
[2019-10-19] MEDS: FAMOTIDINE 20 MG TABLET PO SCH ×2 (09:15→21:48)
[2019-10-19] MEDS: MORPHINE SULFATE SR 15 MG TABLET PO SCH ×2 (09:15→21:48)
[2019-10-19] MEDS: HYDROCHLOROTHIAZIDE 12.5 MG TABLET PO SCH (09:16)
[2019-10-19] MEDS: LORATADINE 10 MG TABLET PO SCH (09:16)
[2019-10-19] MEDS: PREDNISONE 20 MG TABLET PO SCH (09:16)
[2019-10-19] MEDS: VALSARTAN 160 MG TABLET PO SCH (09:16)
[2019-10-19] MEDS: PANTOPRAZOLE SODIUM 20 MG TABLET.DR PO SCH (09:16)
[2019-10-19] MEDS: GUAIFENESIN 600 MG TABLET.SA PO SCH ×2 (09:16→21:48)
[2019-10-19] MEDS: ESCITALOPRAM OXALATE 10 MG TABLET PO SCH (09:17)
--- NOTE | 2019-10-19 09:18 | XCELERA REPORT ---
[address] [address] Transthoracic Echocardiogram Report Name: OJ ANDUJAR Age: 69 yrs Gender: Female : 1950 Patient Status: Inpatient Patient Location: [address] [place], [place] [address] Study Date: 10/18/2019 06:21 PM Height: 62 in Weight: 135 lb BSA: 1.6 m2 Reason For Study: chest pain/tightness Ordering Physician: ZAHRAA MONAE Performed By: [place] Interpretation Summary Echocardiogram of poor quality. No echo contrast-enhancing agent available to utilize for enhancement of images and endocardial border definition. Left ventricular ejection fraction is normal 65 to 70% Grade 1 diastolic dysfunction No significant valvular disease Trivial tricuspid regurgitation trivial mitral regurgitation Trivial to mild aortic insufficiency however this is not well evaluated in this study MMode/2D Measurements & Calculations RVDd: 2.1 cm LVIDd: 4.1 cm FS: 38.0 % Ao root diam: 2.5 cm IVSd: 0.98 cm LVIDs: 2.6 cm EDV(Teich): 74.9 ml LVPWd: 0.78 cm ESV(Teich): 23.5 ml Ao root area: 4.8 cm2 LA dimension: 3.0 cm EF(Teich): 68.7 % Doppler Measurements & Calculations MV E max manuelito: MV P1/2t max manuelito: Ao V2 max: AI max manuelito: 91.8 cm/sec 138.8 cm/sec 160.7 cm/sec 296.6 cm/sec MV A max manuelito: MV P1/2t: 53.6 msec Ao max PG: AI max P.1 cm/sec MVA(P1/2t): 4.1 cm2 10.3 mmHg 35.2 mmHg MV E/A: 0.87 MV dec slope: AI dec slope: 156.1 cm/sec2 757.8 cm/sec2 AI P1/2t: MV dec time: 0.17 sec 556.5 msec LV V1 max PG: PA V2 max: TR max manuelito: AV P1/2t-pr_phl: 11.3 mmHg 94.8 cm/sec 247.3 cm/sec 556.7 msec LV V1 max: PA max P.6 mmHg TR max P.4 cm/sec 24.5 mmHg MV P1/2t-pr_phl: 53.6 msec Left Ventricle The left ventricle is grossly normal size. The Ejection Fraction estimate is 65-70%. Doppler measurements suggest impaired left ventricular relaxation, which is associated with grade I/IV or mild diastolic dysfunction. No wall motion abnormalities visualized however this is a suboptimal exam. Right Ventricle The right ventricle is grossly normal size. Visually appears normal function. There is no RV functional assessment. Atria The right atrium is normal. RA not measured. The left atrial size is normal. No left atrial volume index provided. Not well visualized. Mitral Valve The mitral valve is not well visualized. There is a trace amount of mitral regurgitation. Aortic Valve Not well visualized. There is no aortic valve stenosis. There is a trace to mild amount of aortic regurgitation. Limited assessment not well seen on color Doppler only on spectral doppler. Tricuspid Valve There is a trace amount of tricuspid regurgitation. Doppler findings do not suggest pulmonary hypertension. Pulmonic Valve The pulmonic valve is not well visualized. Great Vessels IVC normal size; limited eval unable to definitively comment regarding respirophasic variation. Effusions There is no pericardial effusion. : ZAHRAA MONAE, Kishore Carrillo
[2019-10-19] MEDS: ROPINIROLE HCL 1 MG TABLET PO SCH ×2 (09:19→21:49)
[2019-10-19] MEDS: LEVALBUTEROL HCL NEB 0.63 MG/3 ML AMPUL NEB PRN ×2 (09:38→15:14)
[2019-10-19] MEDS ORDERED: (PENDING PHARMACY ID) (Dexlansoprazole [Dexilant 30 Mg Capsule] 30 MG) PO SCH (10:00)
--- NOTE | 2019-10-19 10:43 | EKG REPORT ---
SEVERITY:- ABNORMAL ECG - SINUS RHYTHM NONSPECIFIC INTRAVENTRICULAR CONDUCTION DELAY LATERAL INFARCT, OLD : Confirmed by: Guillaume Roy 19-Oct-2019 10:42:40
[2019-10-19] MEDS: FLUTICASONE/UMECLIDIN/VILANTER 100-62.5-25 MCG/DOSE IH SCH (11:22)
--- NOTE | 2019-10-19 11:53 | PDOC CONSULTATION ---
Consultation Consult Date: 10/19/19 Attending physician:: ZAHRAA MONAE Provider Consulted: KRYSTEN BARR Consult reason:: chest pain History of Present Illness Admission Date/PCP: 10/17/19 00:22 YARY MURDOCK MD Patient complains of: Dyspnea History of Present Illness: OJ ANDUJAR is a 69 year old female And is a very pleasant 69-year-old female with past medical history significant for COPD and hypertension over 10 years who is seen today in consultation for evaluation of chest pain. The patient reports she has been sick around July 2019. She was seen early in August and diagnosed with pneumonia and flu. She was seen at 3 follow-up PCP visits for dyspnea and worsening breathing difficulties and at her last visit was told her oxygen was very low and they called EMS for hospital transfer. Yesterday morning just after receiving a breathing treatment the patient notes experiencing severe midsternal chest tightness associated with multiple different left-sided dull pains. She received 2 doses of sublingual nitroglycerin with no effects after the first dose was provided another dose 5 minutes later and all symptoms had resolved in roughly 15 to 20 minutes per report of the patient. This was also discussed with nursing. Symptom was rated as severe, this is the first time this is happened, occurred after a breathing treatment, associated with dull pains, not made worse or better by anything perhaps some improvement with nitroglycerin but patient says she feels a just improved over time after the breathing treatment and after her dopamine was discontinued. The patient had dopamine running when she developed the chest pain which was shut off immediately. Prior to patient being hospitalized she is quite active with protest[employer] and in her home. She is able to complete all ADLs without any difficulties. She denies any recent angina, palpitations, presyncope/syncope, orthopnea or PND. The patient endorses a previous smoking history quitting roughly 14 years ago. However she smoked from around the age of 10 and up to 3 packs/day prior to quitting 14 years ago. Her father had a CVA at age 73 Mother had an UT at age 83 Daughter in the room notes she has had 2 heart attacks but did not need intervention in her 50s Heart her son had an UT at age 47 Patient with no known cardiac history. Per chart review patient had a treadmill stress test and echocardiogram in 2016 without significant abnormal findings for history of abnormal EKG. She reports having been admitted to [facility] in 2018 and having an inpatient stress test which was normal. Past Medical History Cardiac Medical History: Reports: Congestive Heart Failure, Hyperlipidema, Hypertension Denies: Atrial Fibrillation, Coronary Artery Disease, Myocardial Infarction Pulmonary Medical History: Reports: Bronchitis, Chronic Obstructive Pulmonary Disease (COPD), Pneumonia Denies: Asthma EENT Medical History: Reports: Ears - Mild hearing loss Denies: Cataracts, Eyes - Eyeglasses Neurological Medical History: Reports: Other - TIAs Denies: Hemorrhagic CVA, Ischemic CVA, Seizures Endocrine Medical History: Denies: Diabetes Mellitus Type 1, Diabetes Mellitus Type 2, Hyperthyroidism, Hypothyroidism Renal/ Medical History: Denies: Chronic Kidney Disease, Nephrolithiasis Malignancy Medical History: Reports: None GI Medical History: Reports: Gastroesophageal Reflux Disease, Other - Chronic biliary disease Denies: Crohn's Disease, Peptic Ulcer Disease, Ulcerative Colitis Musculoskeltal Medical History: Reports: Arthritis Denies: Fibromyalgia, Gout Skin Medical History: Denies: Eczema, Psoriasis Psychiatric Medical History: Reports: Depression, Tobacco Dependency Denies: Alcohol Dependency, Substance Abuse Traumatic Medical History: Reports: None Hematology: Denies: Anemia, Bleeding Tendencies Infectious Medical History: Reports: None Past Surgical History Past Surgical History: Reports: Cholecystectomy, Hysterectomy, Knee Replacement, Orthopedic Surgery - back surgery, Other - Segmental bowel resection Social History Lives with: Alone Smoking Status: Former Smoker Electronic Cigarette use?: No Frequency of Alcohol Use: None Hx Recreational Drug Use: No Drugs: None Hx Prescription Drug Abuse: No - Advance Directive Resuscitation Status: Full Code Family History Family History: CAD, CVA, DM, Hypertension. denies: Malignancy Parental Family History Reviewed: Yes Children Family History Reviewed: Yes Sibling(s) Family History Reviewed.: Yes Medication/Allergy Home Medications: Albuterol Sulfate [Proair HFA Inhalation Aerosol 8.5 gm MDI] 2 puff IH QIDP PRN 10/17/19 Budesonide/Formoterol Fumarate [Symbicort HFA 160-4.5 mcg Inhaler 6 gm] 2 puff IH BID 10/17/19 Cholecalciferol (Vitamin D3) [Vitamin D3 1000 Unit Tablet] 2,000 unit PO DAILY 10/17/19 Cyanocobalamin (Vitamin B-12) [Vitamin B-12 1000 mcg Tablet] 1,000 mcg PO DAILYP PRN 10/17/19 Dexlansoprazole [Dexilant 30 mg Capsule] 30 mg PO DAILY 10/17/19 Escitalopram Oxalate [Lexapro 10 mg Tablet] 5 mg PO DAILY 10/17/19 Famotidine [Pepcid 20 mg Tablet] 20 mg PO QHS 10/17/19 Fluticasone Propionate [Flonase Nasal [place] 50 Mcg/[place] 16 gm] 1 spray NASL PRN PRN 10/17/19 Linaclotide [Linzess 145 Mcg Capsule] 145 mcg PO Q2D 10/17/19 Loratadine [Claritin 10 mg Tablet] 10 mg PO DAILY 10/17/19 Morphine Sulfate [Ms-Contin Sr 15 mg Tablet] 15 mg PO BID 10/17/19 Ropinirole HCl 0.5 mg PO Q12 10/17/19 Simvastatin 20 mg PO QHS 10/17/19 Tiotropium [place] [Spiriva Handihaler 5 Cap/Kit (18 Mcg/Cap)] 1 puff IH DAILY 10/17/19 Trazodone HCl [Desyrel 50 mg Tablet] 12.5 mg PO QHS 10/17/19 Valsartan/Hydrochlorothiazide [Valsartan-Hctz 160-12.5 mg Tab] 1 tab PO DAILY 10/17/19 Allergies/Adverse Reactions: adhesive tape Allergy (Unknown, Verified 02/08/19 15:04) contact dermatitis aspirin [Aspirin] Adverse Reaction (Intermediate, Verified 02/08/19 15:04) Nausea, abd pain Physical Exam Vital Signs: Temp Pulse Resp BP Pulse Ox 98.0 F 60 16 139/61 H 100 10/19/19 08:01 10/19/19 08:01 10/19/19 08:01 10/19/19 08:01 10/19/19 08:01 Intake & Output 10/18/19 10/19/19 10/20/19 06:59 06:59 06:59 Intake Total 3800 2120 Output Total 1 1025 Balance 3799 1095 Weight 61.3 kg 60.3 kg Exam: General Appearance: no acute distress, well developed, well nourished, no diaphoresis. Eyes:. Pupils equal round reactive to light, no injection no jaundice. EOMI HENT: atraumatic, oropharynx is clear with moist mucous membranes and acceptable dentition. Neck: supple, no masses, no thyromegaly and normal jugular venous pressure. Lungs: Scattered bilateral rhonchorous breath sounds, diffuse expiratory wheezing throughout but moving a fair amount of air. No rales on exam. Non- labored breathing. Patient received a breathing treatment minutes before listening. Cardiovascular: Palpation of heart: normal PMI, no thrills. Auscultation of Heart: normal rate and rhythm, normal S1 and S2, without murmurs, no S3, no S4. Carotid pulses: no bruit, normal amplitude. Abdominal aorta: no bruit, normal amplitude. Radial pulses: normal amplitude. Femoral pulses: no bruit, normal amplitude. Pedal pulses: normal amplitude. Examination of extremities for edema and/or varicosities: normal. Abdomen: normal bowel sounds, soft, non-tender, no masses, no hepatomegaly, no splenomegaly. Musculoskeletal: normal movement of all extremities. Extremities: no clubbing, no cyanosis. Integumentary: warm and dry bilaterally with no ulcers. Psychiatric: awake, alert and oriented x 3. Appropriate mood and affect. Results Laboratory Results: 10/19/19 06:07 10/19/19 06:07 10/19/19 10/19/19 10/19/19 06:07 06:07 06:07 WBC 10.3 RBC 3.72 Hgb 11.2 L Hct 32.2 L MCV 87 MCH 30.2 MCHC 34.8 RDW 13.8 Plt Count 134 L Sodium 140.5 Potassium 3.4 L Chloride 104 Carbon Dioxide 31 H Anion Gap 6 BUN 18 Creatinine 0.69 Est GFR ( Amer) > 60 Glucose 73 L Lactic Acid 1.7 Calcium 8.3 L Magnesium 2.1 10/16/19 10/18/19 10/18/19 16:50 04:18 09:43 Creatine Kinase 62 CK-MB (CK-2) Troponin I 0.012 NT-Pro-B Natriuret Pep 2340 H 10/18/19 10/18/19 10/18/19 09:43 14:31 14:31 Creatine Kinase 62 CK-MB (CK-2) 4.10 3.72 Troponin I 0.016 0.016 NT-Pro-B Natriuret Pep 10/18/19 10/18/19 17:56 17:56 Creatine Kinase 58 CK-MB (CK-2) 3.44 Troponin I 0.016 NT-Pro-B Natriuret Pep EKG Comments: Personal interpretation of EKG 10/19/2019 6:37 AM sinus bradycardia 59 bpm, normal PA interval, normal axis, incomplete right bundle branch block QRS 118 ms, equivocal Q's high lateral leads, late anterior R wave transition,normal QT interval. Impressions: Chest X-Ray 10/16/19 17:10 IMPRESSION: NO ACUTE RADIOGRAPHIC FINDING IN THE CHEST. Assessment & Plan - Diagnosis (1) Acute exacerbation of chronic obstructive pulmonary disease Is this a current diagnosis for this admission?: Yes (2) Hypotension Qualifiers: Hypotension type: unspecified hypotension type Qualified Code(s): I95.9 - Hypotension, unspecified Is this a current diagnosis for this admission?: Yes (4) HTN (hypertension) Qualifiers: Hypertension type: essential hypertension Qualified Code(s): I10 - Essential (primary) hypertension Is this a current diagnosis for this admission?: Yes - Notes Notes: The patient developed one episode of chest tightness immediately following a breathing treatment and the patient explains this was a new medication being started she was also on dopamine infusion at that time. She had no associated symptoms and has otherwise been ruled out for an UT with her last serial troponin occurring 6 hours after this episode. The patient has had no further episodes. - Consider addition of aspirin 81 mg daily with a meal for primary prevention. If patient has further episodes add Imdur 30 mg daily. avoid bb therapy at this time; rather poor lung exam during COPD exacerbation I have discussed with the patient she will follow-up in clinic within 7 days of hospital discharge regarding further risk stratification. -Thoracic echocardiogram ordered and artery interpreted. Preserved LV function otherwise poor study without significant abnormalities. COPD exacerbation Patient notes slow improvement. Management per primary team. Dr. Rdz will resume rounding for [facility] Tuesday. If the patient is discharged prior to Tuesday the patient was advised to call the office and she will have follow-up within 7 days.
--- NOTE | 2019-10-19 14:48 | PDOC PROGRESS REPORT ---
Subjective Progress Note for:: 10/19/19 Subjective:: The patient is resting comfortably. Company is visiting. She still has a cough but it sounds "looser ". She feels it is improving and she continues to try and cough up mucus. She states that on occasion she does feel that central chest tightness but believes that is more related to the inflammation in the airways than anything. She also appreciates the Trelegy inhaler with all 3 medicines present and only 1 inhalation a day. Reason For Visit: ACUTE EXACERBATION OF COPD,HYPOTENSION Physical Exam Vital Signs: Temp Pulse Resp BP Pulse Ox 98.2 F 73 16 104/50 L 100 10/19/19 12:38 10/19/19 12:38 10/19/19 12:38 10/19/19 12:38 10/19/19 12:38 Intake & Output 10/18/19 10/19/19 10/20/19 06:59 06:59 06:59 Intake Total 3800 2120 Output Total 1 1025 Balance 3799 1095 Weight 61.3 kg 60.3 kg General appearance: PRESENT: no acute distress, cooperative, well-developed Head exam: PRESENT: atraumatic, normocephalic Eye exam: PRESENT: conjunctiva pink. ABSENT: scleral icterus Ear exam: PRESENT: normal external ear exam. ABSENT: bleeding, drainage Mouth exam: PRESENT: moist, tongue midline Respiratory exam: PRESENT: rhonchi, symmetrical, unlabored. ABSENT: tachypnea, wheezes Cardiovascular exam: PRESENT: RRR, +S1, +S2 GI/Abdominal exam: PRESENT: normal bowel sounds, soft. ABSENT: distended, guarding, mass, tenderness Rectal exam: PRESENT: deferred Gentrourinary exam: ABSENT: indwelling catheter Extremities exam: ABSENT: pedal edema Musculoskeletal exam: PRESENT: ambulatory, full ROM, normal inspection Neurological exam: PRESENT: alert, awake, oriented to person, oriented to place, oriented to time, oriented to situation, CN II-XII grossly intact. ABSENT: altered, motor sensory deficit Psychiatric exam: PRESENT: appropriate affect, normal mood. ABSENT: agitated, anxious Results Laboratory Results: 10/19/19 06:07 10/19/19 06:07 10/19/19 10/19/19 10/19/19 06:07 06:07 06:07 WBC 10.3 RBC 3.72 Hgb 11.2 L Hct 32.2 L MCV 87 MCH 30.2 MCHC 34.8 RDW 13.8 Plt Count 134 L Sodium 140.5 Potassium 3.4 L Chloride 104 Carbon Dioxide 31 H Anion Gap 6 BUN 18 Creatinine 0.69 Est GFR ( Amer) > 60 Glucose 73 L Lactic Acid 1.7 Calcium 8.3 L Magnesium 2.1 10/16/19 10/18/19 10/18/19 16:50 04:18 09:43 Creatine Kinase 62 CK-MB (CK-2) Troponin I 0.012 NT-Pro-B Natriuret Pep 2340 H 10/18/19 10/18/19 10/18/19 09:43 14:31 14:31 Creatine Kinase 62 CK-MB (CK-2) 4.10 3.72 Troponin I 0.016 0.016 NT-Pro-B Natriuret Pep 10/18/19 10/18/19 17:56 17:56 Creatine Kinase 58 CK-MB (CK-2) 3.44 Troponin I 0.016 NT-Pro-B Natriuret Pep Impressions: Chest X-Ray 10/16/19 17:10 IMPRESSION: NO ACUTE RADIOGRAPHIC FINDING IN THE CHEST. Assessment and Plan - Diagnosis (1) Angina at rest Is this a current diagnosis for this admission?: Yes (2) Acute exacerbation of chronic obstructive pulmonary disease Is this a current diagnosis for this admission?: Yes (3) Elevated lactic acid level Is this a current diagnosis for this admission?: Yes (4) Hypotension Qualifiers: Hypotension type: unspecified hypotension type Qualified Code(s): I95.9 - Hypotension, unspecified Is this a current diagnosis for this admission?: Yes (5) Diastolic CHF Qualifiers: Heart failure chronicity: chronic Qualified Code(s): I50.32 - Chronic diastolic (congestive) heart failure Is this a current diagnosis for this admission?: Yes (6) HTN (hypertension) Qualifiers: Hypertension type: essential hypertension Qualified Code(s): I10 - Essential (primary) hypertension Is this a current diagnosis for this admission?: Yes (7) Hyperlipidemia Qualifiers: Hyperlipidemia type: unspecified Qualified Code(s): E78.5 - Hyperlipidemia, unspecified Is this a current diagnosis for this admission?: Yes (8) Restless leg syndrome Is this a current diagnosis for this admission?: Yes (9) Opiate dependence Is this a current diagnosis for this admission?: Yes (10) Constipation due to opioid therapy Is this a current diagnosis for this admission?: Yes (11) Chronic pain Is this a current diagnosis for this admission?: Yes - Plan Summary Summary: Patient is admitted to the [facility] where she will receive routine supportive and symptomatic cares. She will be treated with aggressive pulmonary toilet utilizing nebulized Xopenex, Atrovent, Pulmicort and Mucomyst. She will be treated empirically with IV antibiotics initially using cefepime. She will be treated with high-volume IV fluids initially. Serum lactic acid levels will be followed. Patient will be treated with IV fluids and her blood pressure and heart rate will be monitored frequently. CBCs, metabolic profiles and magnesium levels be followed on a regular basis as appropriate. Patient's current home medications especially those for hypertension will be withheld at the present [facility], as she is currently somewhat hypotensive. I have personally reviewed the patient's chest x-ray and found that it does not show any acute cardiopulmonary disease. I have personally interpreted the patient's EKG and found no evidence of acute myocardial ischemia or cardiac injury, a right bundle branch block and sinus tachycardia were noted. Patient received Ativan 0.5 mg IV every 4 hours as needed for anxiety. 10/17/2019-the patient was inquiring about her regular medications. Medications were reconciled and she is back on her chronic therapy. Initial plan is as above and I will reassess tomorrow. 10/18/2019 Angina-the patient was having central chest pressure relieved by sublingual nitroglycerin. EKG showed Q waves in the lateral leads but the patient denies any history of myocardial infarction. Blood pressure is stable and so I have discontinued the dopamine infusion. The patient was seen [facility] for work-up 2 years ago and I have asked Dr. Morse to consult. She is already on an angiotensin receptor madelin. She is allergic to aspirin. She may benefit from a beta-madelin and I will discuss with Dr. Morse in the morning. She is also already on statin therapy. An echocardiogram has been ordered. After 2 sublingual nitroglycerin tablets the pain was much improved. If the patient complains of discomfort again we will utilize nitroglycerin paste. Exacerbation of COPD-she is much improved. I will start her on inhaler therapy with Trelegy and discontinue ipratropium and budesonide. I will also discontinue acetylcysteine and continue steroid therapy with prednisone. Hypertension-the hypotension has resolved. The patient is off dopamine. We patricia l continue her baseline medications at this time. Possible addition of beta- madelin therapy based on cardiology consult. Possible history of diastolic heart failure-the patient is not very sure of the exact diagnosis of heart failure. She had an echo 2 years ago and she believes that it was normal. We have ordered an echocardiogram today and Dr. Morse will interpret. We will continue the same treatment for the restless legs, chronic pain, opiate dependence and opiate-induced constipation. 10/19/2019- Cardiology saw the patient. The patient will follow-up with Dr. Morse as an outpatient for likely further cardiac testing. Medication changes as noted above. If any angina recurs were instructed to start the patient on Imdur long- acting nitrate therapy. Her blood pressure occasionally dips low. Because of her hypertension she is already on several medications. I am going to decrease her valsartan to 80 mg from 160 mg. We will continue to monitor her vital signs and make adjustments accordingly. Unfortunately the patient is allergic to aspirin and and so no antiplatelet therapy at this time. The exacerbation of COPD is definitely improving. The patient already has an incentive spirometer but I am going to add a flutter valve and I explained to her that it should help mobilize the mucus. She is on room air. I encouraged her to get out of bed and start walking around as I was hoping to discharge her tomorrow. I want to make sure that she can have activity without oxygen and not get hypoxic. - Time Time Spent with patient: 15-24 minutes Medications reviewed and adjusted accordingly: Yes Anticipated discharge: Home Within: within 24 hours
[2019-10-19] MEDS: SIMVASTATIN 10 MG TABLET PO SCH (21:48)
[2019-10-19] MEDS: TRAZODONE HCL 50 MG TABLET PO SCH (21:49)
[2019-10-20] MEDS: HEPARIN SOD (PORCINE) 5,000 UNIT/ML 1 ML VIAL SUBCUT SCH ×2 (05:40→13:31)
[2019-10-20] MEDS: CEFEPIME HCL 2 GM in DEXTROSE 5%-WATER 50 ML IV SCH (05:47)
[2019-10-20 06:14] LABS: HEMATOCRIT 33.1 % (36.0-47.0); HEMOGLOBIN 11.7 g/dL (12.0-15.5); MEAN CORPUSCULAR HEMOGLOBIN 30.7 pg (27.0-33.4); MEAN CORPUSCULAR HGB CONC 35.5 g/dL (32.0-36.0); MEAN CORPUSCULAR VOLUME 87 fl (80-97); PLATELET COUNT 138 10^3/uL (150-450); RED BLOOD COUNT 3.82 10^6/uL (3.72-5.28); RED CELL DISTRIBUTION WIDTH 13.3 % (11.5-14.0); WHITE BLOOD COUNT 5.8 10^3/uL (4.0-10.5)
[2019-10-20 06:36] LABS: ANION GAP 6 (5-19); BLOOD UREA NITROGEN 17 mg/dL (7-20); CALCIUM 8.7 mg/dL (8.4-10.2); CARBON DIOXIDE 35 mmol/L (22-30); CHLORIDE 101 mmol/L (98-107); GLUCOSE 100 mg/dL (75-110); POTASSIUM 3.8 mmol/L (3.6-5.0)
[2019-10-20] MEDS: LEVALBUTEROL HCL NEB 0.63 MG/3 ML AMPUL NEB PRN ×2 (08:13→12:00)
[2019-10-20] MEDS: GUAIFENESIN 600 MG TABLET.SA PO SCH (09:11)
[2019-10-20] MEDS: LORATADINE 10 MG TABLET PO SCH (09:11)
[2019-10-20] MEDS: POTASSIUM CHLORIDE 10 MEQ TABLET.ER PO SCH (09:11)
[2019-10-20] MEDS: FAMOTIDINE 20 MG TABLET PO SCH (09:11)
[2019-10-20] MEDS: PREDNISONE 20 MG TABLET PO SCH (09:11)
[2019-10-20] MEDS: DOCUSATE SODIUM 100 MG CAPSULE PO SCH (09:11)
[2019-10-20] MEDS: ESCITALOPRAM OXALATE 10 MG TABLET PO SCH (09:11)
[2019-10-20] MEDS: MORPHINE SULFATE SR 15 MG TABLET PO SCH (09:11)
[2019-10-20] MEDS: PANTOPRAZOLE SODIUM 20 MG TABLET.DR PO SCH (09:11)
[2019-10-20] MEDS: ROPINIROLE HCL 1 MG TABLET PO SCH (09:12)
[2019-10-20] MEDS: FLUTICASONE/UMECLIDIN/VILANTER 100-62.5-25 MCG/DOSE IH SCH (09:13)
[2019-10-20] MEDS: HYDROCHLOROTHIAZIDE 12.5 MG TABLET PO SCH (09:14)
[2019-10-20] MEDS ORDERED: LINZESS PO SCH (10:00)
[2019-10-20] MEDS ORDERED: VALSARTAN 80 MG TABLET PO SCH (10:00)
--- NOTE | 2019-10-20 12:38 | PDOC DISCHARGE SUMMARY ---
Impression - Admit/DC Date/PCP Admission Date/Primary Care Provider: 10/17/19 00:22 YARY MURDOCK MD Discharge Date: 10/20/19 - Discharge Diagnosis (1) Angina at rest Is this a current diagnosis for this admission?: Yes (2) Acute exacerbation of chronic obstructive pulmonary disease Is this a current diagnosis for this admission?: Yes (3) Elevated lactic acid level Is this a current diagnosis for this admission?: Yes (4) Hypotension Is this a current diagnosis for this admission?: Yes (5) Diastolic CHF Is this a current diagnosis for this admission?: Yes (6) HTN (hypertension) Is this a current diagnosis for this admission?: Yes (7) Hyperlipidemia Is this a current diagnosis for this admission?: Yes (8) Restless leg syndrome Is this a current diagnosis for this admission?: Yes (9) Opiate dependence Is this a current diagnosis for this admission?: Yes (10) Constipation due to opioid therapy Is this a current diagnosis for this admission?: Yes (11) Chronic pain Is this a current diagnosis for this admission?: Yes - Assessment Summary: Patient is admitted to the [facility] where she will receive routine supportive and symptomatic cares. She will be treated with aggressive pulmonary toilet utilizing nebulized Xopenex, Atrovent, Pulmicort and Mucomyst. She will be treated empirically with IV antibiotics initially using cefepime. She will be treated with high-volume IV fluids initially. Serum lactic acid levels will be followed. Patient will be treated with IV fluids and her blood pressure and heart rate will be monitored frequently. CBCs, metabolic profiles and magnesium levels be followed on a regular basis as appropriate. Patient's current home medications especially those for hypertension will be withheld at the present time, as she is currently somewhat hypotensive. I have personally reviewed the patient's chest x-ray and found that it does not show any acute cardiopulmonary disease. I have personally interpreted the patient's EKG and found no evidence of acute myocardial ischemia or cardiac injury, a right bundle branch block and sinus tachycardia were noted. Patient received Ativan 0.5 mg IV every 4 hours as needed for anxiety. 10/17/2019-the patient was inquiring about her regular medications. Medications were reconciled and she is back on her chronic therapy. Initial plan is as above and I will reassess tomorrow. 10/18/2019 Angina-the patient was having central chest pressure relieved by sublingual nitroglycerin. EKG showed Q waves in the lateral leads but the patient denies any history of myocardial infarction. Blood pressure is stable and so I have discontinued the dopamine infusion. The patient was seen at [facility] for work-up 2 years ago and I have asked Dr. Morse to consult. She is already on an angiotensin receptor madelin. She is allergic to aspirin. She may benefit from a beta-madelin and I will discuss with Dr. Morse in the morning. She is also already on statin therapy. An echocardiogram has been ordered. After 2 sublingual nitroglycerin tablets the pain was much improved. If the patient complains of discomfort again we will utilize nitroglycerin paste. Exacerbation of COPD-she is much improved. I will start her on inhaler therapy with Trelegy and discontinue ipratropium and budesonide. I will also discontinue acetylcysteine and continue steroid therapy with prednisone. Hypertension-the hypotension has resolved. The patient is off dopamine. We will continue her baseline medications at this time. Possible addition of beta- madelin therapy based on cardiology consult. Possible history of diastolic heart failure-the patient is not very sure of the exact diagnosis of heart failure. She had an echo 2 years ago and she believes that it was normal. We have ordered an echocardiogram today and Dr. Morse will interpret. We will continue the same treatment for the restless legs, chronic pain, opiate dependence and opiate-induced constipation. 10/19/2019- Cardiology saw the patient. The patient will follow-up with Dr. Morse as an outpatient for likely further cardiac testing. Medication changes as noted above. If any angina recurs were instructed to start the patient on Imdur long- acting nitrate therapy. Her blood pressure occasionally dips low. Because of her hypertension she is already on several medications. I am going to decrease her valsartan to 80 mg from 160 mg. We will continue to monitor her vital signs and make adjustments accordingly. Unfortunately the patient is allergic to aspirin and and so no antiplatelet therapy at this time. The exacerbation of COPD is definitely improving. The patient already has an incentive spirometer but I am going to add a flutter valve and I explained to her that it should help mobilize the mucus. She is on room air. I encouraged her to get out of bed and start walking around as I was hoping to discharge her tomorrow. I want to make sure that she can have activity without oxygen and not get hypoxic. 10/20/2019 The patient is doing quite well. She does have a congested cough still but it is improving. She will continue her incentive spirometer and flutter valve at home. She will try and stay well-hydrated. We are going to send a prescription for the Trelegy inhaler to see if her insurance will cover it to replace the Symbicort and Spiriva. The Trelegy does not give her any chest tightness when using it. - Additional Information Resuscitation Status: Full Code Discharge Diet: Cardiac Discharge Activity: Activity As Tolerated Referrals: BRENDA TRIANA MD [ACTIVE PROVISIONAL STAFF] - YARY MURDOCK MD [Primary Care Provider] - Follow up as needed Prescriptions: Cefuroxime Axetil [Ceftin 250 mg Tablet] 1 tab PO BID #20 tablet Prednisone [Deltasone 20 mg Tablet] 40 mg PO DAILY 2 Days #4 tablet Fluticasone/Umeclidin/Vilanter [Trelegy 100-62.5-25 Mcg Ellipta 14 Dose/Dpi] 1 inh IH DAILY #1 inhaler Valsartan/Hydrochlorothiazide [Valsartan-Hctz 80-12.5 mg Tab] 1 each PO DAILY 15 Days #15 tablet Home Medications: Albuterol Sulfate [Proair HFA Inhalation Aerosol 8.5 gm MDI] 2 puff IH QIDP PRN 10/17/19 Cholecalciferol (Vitamin D3) [Vitamin D3 1000 Unit Tablet] 2,000 unit PO DAILY 10/17/19 Cyanocobalamin (Vitamin B-12) [Vitamin B-12 1000 mcg Tablet] 1,000 mcg PO DAILYP PRN 10/17/19 Dexlansoprazole [Dexilant 30 mg Capsule] 30 mg PO DAILY 10/17/19 Escitalopram Oxalate [Lexapro 10 mg Tablet] 5 mg PO DAILY 10/17/19 Famotidine [Pepcid 20 mg Tablet] 20 mg PO QHS 10/17/19 Fluticasone Propionate [Flonase Nasal [place] 50 Mcg/[place] 16 gm] 1 spray NASL PRN PRN 10/17/19 Linaclotide [Linzess 145 Mcg Capsule] 145 mcg PO Q2D 10/17/19 Loratadine [Claritin 10 mg Tablet] 10 mg PO DAILY 10/17/19 Morphine Sulfate [Ms-Contin Sr 15 mg Tablet] 15 mg PO BID 10/17/19 Ropinirole HCl 0.5 mg PO Q12 10/17/19 Simvastatin 20 mg PO QHS 10/17/19 Trazodone HCl [Desyrel 50 mg Tablet] 12.5 mg PO QHS 10/17/19 Cefuroxime Axetil [Ceftin 250 mg Tablet] 1 tab PO BID #20 tablet 10/20/19 Docusate Sodium [Colace 100 mg Capsule] 100 mg PO BID capsule 10/20/19 Escitalopram Oxalate [Lexapro 10 mg Tablet] 10 mg PO DAILY tablet 10/20/19 Fluticasone/Umeclidin/Vilanter [Trelegy 100-62.5-25 Mcg Ellipta 14 Dose/Dpi] 1 inh IH DAILY #1 inhaler 10/20/19 Guaifenesin [Mucinex Sr 600 mg Tablet.sa] 600 mg PO Q12 tablet.sa 10/20/19 Loratadine [Claritin 10 mg Tablet] 10 mg PO DAILY tablet 10/20/19 Morphine Sulfate [Ms-Contin Sr 15 mg Tablet] 15 mg PO Q12 tablet.sa 10/20/19 Prednisone [Deltasone 20 mg Tablet] 40 mg PO DAILY 2 Days #4 tablet 10/20/19 Simvastatin [Zocor 10 mg Tablet] 20 mg PO QHS tablet 10/20/19 Trazodone HCl [Desyrel 50 mg Tablet] 75 mg PO QHS tablet 10/20/19 Valsartan/Hydrochlorothiazide [Valsartan-Hctz 80-12.5 mg Tab] 1 each PO DAILY 15 Days #15 tablet 10/20/19 History of Present Illiness History of Present Illness: OJ ANDUJAR is a 69 year old female who presented the emergency room with a 2-month history of dyspnea. She admits being short of breath since she was diagnosed with pneumonia and influenza shortly after New Years. Her dyspnea has been persistent but has been growing notably worse (now severe) over the last 4 days, being accompanied by a cough productive of thick yellow mucus. Her dyspnea has also been associated with a subjective fever with chills, episodes of diaphoresis, headaches, nausea and orthostatic lightheadedness. Her dyspnea has been noted to be increased by exertion and she has not identified any ameliorating factors including the failure of nebulizer therapy to produce improvement. She denies other associated or accompanying signs and symptoms. She admits similar prior episodes related to her COPD and recent pneumonia. She has not identified any additional aggravating or ameliorating factors for her dyspnea. In the emergency room room she was found to have hypoxia requiring supplemental oxygen to maintain adequate O2 saturation and was also noted to have rising lactic acid levels. She was subsequently admitted to the hospital for further evaluation treatment. Hospital Course Hospital Course: The patient had a fairly unremarkable course. With aggressive therapy and antibiotics she is improved enough for discharge to home. Please see above for more detailed information. Physical Exam Vital Signs: Temp Pulse Resp BP Pulse Ox 98.2 F 79 16 137/63 H 97 10/20/19 09:14 10/20/19 12:01 10/20/19 12:01 10/20/19 09:14 10/20/19 12:01 Intake & Output 10/19/19 10/20/19 10/21/19 06:59 06:59 06:59 Intake Total 2120 1620 Output Total 1025 2450 Balance 1095 -830 Weight 60.3 kg 61.9 kg General appearance: PRESENT: no acute distress, cooperative, well-developed Respiratory exam: PRESENT: symmetrical, unlabored, other - Congested cough bilaterally. ABSENT: prolonged expiratory phas, rales, tachypnea, wheezes Cardiovascular exam: PRESENT: RRR, +S1, +S2 GI/Abdominal exam: PRESENT: normal bowel sounds, soft. ABSENT: tenderness Musculoskeletal exam: PRESENT: ambulatory, normal inspection Neurological exam: PRESENT: alert, awake, oriented to person, oriented to place, oriented to time, oriented to situation, CN II-XII grossly intact. ABSENT: altered, motor sensory deficit Psychiatric exam: PRESENT: appropriate affect, normal mood. ABSENT: agitated, anxious Results Laboratory Results: WBC 5.8 10^3/uL (4.0-10.5) 10/20/19 05:22 RBC 3.82 10^6/uL (3.72-5.28) 10/20/19 05:22 Hgb 11.7 g/dL (12.0-15.5) L 10/20/19 05:22 Hct 33.1 % (36.0-47.0) L 10/20/19 05:22 MCV 87 fl (80-97) 10/20/19 05:22 MCH 30.7 pg (27.0-33.4) 10/20/19 05:22 MCHC 35.5 g/dL (32.0-36.0) 10/20/19 05:22 RDW 13.3 % (11.5-14.0) 10/20/19 05:22 Plt Count 138 10^3/uL (150-450) L 10/20/19 05:22 Lymph % (Auto) 7.6 % (13-45) L 10/16/19 16:50 [place] % (Auto) 5.6 % (3-13) 10/16/19 16:50 Eos % (Auto) 0.3 % (0-6) 10/16/19 16:50 Baso % (Auto) 0.2 % (0-2) 10/16/19 16:50 Absolute Neuts (auto) 7.3 10^3/uL (1.7-8.2) 10/16/19 16:50 Absolute Lymphs (auto) 0.6 10^3/uL (0.5-4.7) 10/16/19 16:50 Absolute Monos (auto) 0.5 10^3/uL (0.1-1.4) 10/16/19 16:50 Absolute Eos (auto) 0.0 10^3/uL (0.0-0.6) 10/16/19 16:50 Absolute Basos (auto) 0.0 10^3/uL (0.0-0.2) 10/16/19 16:50 Seg Neutrophils % 86.3 % (42-78) H 10/16/19 16:50 PT 12.5 SEC (11.4-15.4) 10/16/19 16:50 INR 0.93 10/16/19 16:50 VBG pH 7.42 (7.30-7.42) 10/16/19 17:30 VBG pCO2 41.3 mmHg (35-63) 10/16/19 17:30 VBG HCO3 26.4 mmol/L (20-32) 10/16/19 17:30 VBG Base Excess 1.8 mmol/L 10/16/19 17:30 Sodium 142.0 mmol/L (137-145) 10/20/19 05:52 Potassium 3.8 mmol/L (3.6-5.0) 10/20/19 05:52 Chloride 101 mmol/L (98-107) 10/20/19 05:52 Carbon Dioxide 35 mmol/L (22-30) H 10/20/19 05:52 Anion Gap 6 (5-19) 10/20/19 05:52 BUN 17 mg/dL (7-20) 10/20/19 05:52 Creatinine 0.65 mg/dL (0.52-1.25) 10/20/19 05:52 Est GFR ( Amer) > 60 (>60) 10/20/19 05:52 Est GFR (MDRD) Non-Af > 60 (>60) 10/20/19 05:52 Glucose 100 mg/dL (75-110) 10/20/19 05:52 POC Glucose 174 mg/dL (70-110) H 10/16/19 21:41 Lactic Acid 1.7 mmol/L (0.7-2.1) 10/19/19 06:07 Calcium 8.7 mg/dL (8.4-10.2) 10/20/19 05:52 Magnesium 2.1 mg/dL (1.6-2.3) 10/20/19 05:52 Total Bilirubin 0.7 mg/dL (0.2-1.3) 10/16/19 16:50 Direct Bilirubin 0.3 mg/dL (0.0-0.4) 10/16/19 16:50 Neonat Total Bilirubin Not Reportable 10/16/19 16:50 Neonat Direct Bilirubin Not Reportable 10/16/19 16:50 Neonat Indirect Bili Not Reportable 10/16/19 16:50 AST 27 U/L (14-36) 10/16/19 16:50 ALT 13 U/L (<35) 10/16/19 16:50 Alkaline Phosphatase 75 U/L (38-126) 10/16/19 16:50 Creatine Kinase 58 U/L (30-135) 10/18/19 17:56 CK-MB (CK-2) 3.44 ng/mL (<4.55) 10/18/19 17:56 Troponin I 0.016 ng/mL 10/18/19 17:56 NT-Pro-B Natriuret Pep 2340 pg/mL (<125) H 10/18/19 04:18 Total Protein 6.8 g/dL (6.3-8.2) 10/16/19 16:50 Albumin 3.9 g/dL (3.5-5.0) 10/16/19 16:50 Triglycerides 76 mg/dL (<150) 10/18/19 06:06 Cholesterol 125.43 mg/dL (0-200) 10/18/19 06:06 LDL Cholesterol Direct 70 mg/dL (<100) 10/18/19 06:06 VLDL Cholesterol 15.0 mg/dL (10-31) 10/18/19 06:06 HDL Cholesterol 50 mg/dL (>40) 10/18/19 06:06 TSH 0.03 uIU/mL (0.47-4.68) L 10/18/19 06:06 Urine Color YELLOW 10/16/19 18:35 Urine Appearance SLIGHTLY-CLOUDY 10/16/19 18:35 Urine pH 5.0 (5.0-9.0) 10/16/19 18:35 Ur Specific [place] 1.012 10/16/19 18:35 Urine Protein NEGATIVE mg/dL (NEGATIVE) 10/16/19 18:35 Urine Glucose (UA) NEGATIVE mg/dL (NEGATIVE) 10/16/19 18:35 Urine Ketones NEGATIVE mg/dL (NEGATIVE) 10/16/19 18:35 Urine Blood NEGATIVE (NEGATIVE) 10/16/19 18:35 Urine Nitrite NEGATIVE (NEGATIVE) 10/16/19 18:35 Urine Bilirubin NEGATIVE (NEGATIVE) 10/16/19 18:35 Urine Urobilinogen NEGATIVE mg/dL (<2.0) 10/16/19 18:35 Ur Leukocyte Esterase NEGATIVE (NEGATIVE) 10/16/19 18:35 Urine WBC (Auto) 1 /HPF 10/16/19 18:35 Urine RBC (Auto) 2 /HPF 10/16/19 18:35 U Hyaline Cast (Auto) 5 /LPF 10/16/19 18:35 Urine Bacteria (Auto) TRACE /HPF 10/16/19 18:35 Squamous Epi Cells Auto 2 /HPF 10/16/19 18:35 Urine Mucus (Auto) OCC /LPF 10/16/19 18:35 Urine Ascorbic Acid NEGATIVE (NEGATIVE) 10/16/19 18:35 10/16/19 10/18/19 10/18/19 16:50 04:18 09:43 CK-MB (CK-2) 4.10 Troponin I 0.012 0.016 NT-Pro-B Natriuret Pep 2340 H 10/18/19 10/18/19 14:31 17:56 CK-MB (CK-2) 3.72 3.44 Troponin I 0.016 0.016 NT-Pro-B Natriuret Pep Impressions: Chest X-Ray 10/16/19 17:10 IMPRESSION: NO ACUTE RADIOGRAPHIC FINDING IN THE CHEST. Plan Health Concerns: Chest pain-the patient had an episode of chest discomfort. It was most likely related to inhaler therapy however she will need to follow-up with cardiology after discharge. Plan of Treatment: Will discharge on antibiotics, brief prednisone course and Trelegy inhaler. If she cannot obtain the Trelegy then she will resume her Symbicort and Spiriva. She will take her incentive spirometer and flutter valve home with her as well. Goals: Complete resolution of pneumonia and exacerbation of COPD. Follow-up with cardiology to further assess chest discomfort. Time Spent: Greater than 30 Minutes Stroke Is this a Stroke Patient?: No Acute Heart Failure - Is this a Heart Failure Patient?: No
[2019-10-20 13:46] VITALS: BP 130/57
== END 2019-10-20 13:47 | disposition home or self-care (01) | DRG 191 ==
LOC: ER 17:08 → EH 10-17 00:22 → 3N 10-17 03:10
PROVIDERS: ADMIT Emergency Medicine; ATTEND Emergency Medicine
DX: J44.1 Chronic obstructive pulmonary disease with (acute) exacerbation (principal); I50.32 Chronic diastolic (congestive) heart failure; I20.9 Angina pectoris, unspecified; I95.9 Hypotension, unspecified; I11.0 Hypertensive heart disease with heart failure; E78.5 Hyperlipidemia, unspecified; G25.81 Restless legs syndrome; K59.03 Drug induced constipation; T40.2X5A Adverse effect of other opioids, initial encounter; G89.29 Other chronic pain; I45.10 Unspecified right bundle-branch block; H91.90 Unspecified hearing loss, unspecified ear; K21.9 Gastro-esophageal reflux disease without esophagitis; F32.9 Major depressive disorder, single episode, unspecified; E78.00 Pure hypercholesterolemia, unspecified; Z96.659 Presence of unspecified artificial knee joint; Z60.2 Problems related to living alone; Z79.891 Long term (current) use of opiate analgesic; Z87.891 Personal history of nicotine dependence; Z86.73 Personal history of transient ischemic attack (TIA), and cerebral infarction without residual deficits; Z82.49 Family history of ischemic heart disease and other diseases of the circulatory system; Z82.3 Family history of stroke; Z83.3 Family history of diabetes mellitus; Z79.899 Other long term (current) drug therapy; Z88.6 Allergy status to analgesic agent; Z91.048 Other nonmedicinal substance allergy status
CPT/HCPCS: 36415; 71045; 80048; 80053; 80061; 81001; 82550; 82553; 82803; 82962; 83605; 83735; 83880; 84443; 84484; 85025; 85027; 85610; 87040; 93005; 93010; 93306; 94667; 94799; 96361; 96365; 96375; 99285; J0456; J0692; J0696; J1265; J1644; J2550; J2920; J2930; J3490; J7030; J7060; J7120; J7512; J7614

== ENCOUNTER 2020-09-03 10:10 | Day surgery (SDC) | payer MEDICARE, BC ==
[~2020-09-03 10:10] MED LIST: CHONDR SU A NA/HYALUR INTRAOC KIT (SURGICARE) ONE; DORZOLAMIDE HCL 2%/TIMOLOL MALEAT 0.5% OPH SOLN 10 ML OD PRN; EPINEPHRINE INJ/PF 1 MG/1 ML AMPULE ONE; FENTANYL CITRATE INJ/PF 100 MCG/2 ML AMPUL ONE; KETOROLAC TROMETHAMINE 0.45% 4 DROP/0.4 ML DROPERETTE OD PRN; LIDOCAINE 1%/PHENYLEPHRINE 1.5% 1 ML VIAL ONE; MIDAZOLAM 2 MG/2 ML INJ ONE; ONDANSETRON HCL INJ/PF 4 MG/2 ML SDV ONE; PREDNISOLONE ACETATE 1% OPH SUSP 5 ML OD PRN
[2020-09-03] MEDS: TETRACAINE HCL 0.5% OPH SOLN 4 ML OD PRN ×3 (10:30→11:08)
[2020-09-03] MEDS: CYCLOPENTOLATE 0.2%/PHENYLEPHRINE 1% OPH SOLN 2 ML OD PRN ×3 (10:31→10:57)
[2020-09-03] MEDS: BESIFLOXACIN HCL 0.6% OPH SUSP 5 ML BOTTLE OD PRN ×3 (10:31→11:27)
[2020-09-03] MEDS: TROPICAMIDE 1% OPH SOLN 15 ML OD PRN ×3 (10:31→10:57)
--- NOTE | 2020-09-03 15:29 | Operative Report ---
Operative Report-[facility] Operative Report: DATE OF SURGERY: September 03, 2020 PREOPERATIVE DIAGNOSIS: NUCLEAR CATARACT, RIGHT EYE. POSTOPERATIVE DIAGNOSIS: NUCLEAR CATARACT, RIGHT EYE. PROCEDURE PERFORMED: PHACOEMULSIFICATION WITH POSTERIOR CHAMBER INTRAOCULAR LENS IMPLANT, RIGHT EYE. SURGEON: Tono Lopez DO MEDICATIONS AND ANESTHESIA: Versed: IV Versed Tetracaine drops: 1 to 2 drops given as needed COMPLICATION: None INDICATIONS FOR SURGERY: Medical necessity: Best corrected visual acuity worse than 20/40 secondary to cataracts with impairment of ability to carry out needs or desired activities, blurred vision, visual distortion, reduced contrast sensitivity and/or glare with association functional impairment and supporting documentation/testing, and cataracts causing symptomatic impairment of visual functions not corrected with tolerable changes in glasses or contact lenses interfering with activities of daily life. PROCEDURE: Consent: The risks, benefits and alternatives of this procedures was discussed with the patient. The patient read and signed the consent forms, was identified and was seated in the exam chair. IOL: MX 60 E 23.0 IOL Diopters: Phacoemulsification with posterior chamber intraocular lens implant: The face was prepped with 5% povidone iodine solution, and a few drops of 5% povidone iodine solution was instilled into the inferior fornix. A non-fenestrated drape was placed over the eye and the lids were parted with the speculum. A paracentesis was made with a 15 degree blade, and 1% lidocaine MPF followed by viscoelastic was injected into the anterior chamber. A 2.4 mm metal micro- keratome was used to create a temporal clear corneal incision. A circular anterior capsulorrhexis was created, followed by hydro-dissection and hydro- delineation. The phacoemulsification hand piece was inserted and the nucleus was removed with the Phaco chop technique. The irrigation-aspiration hand piece was used to remove the residual cortex, and vacuum the posterior capsule. The capsular bag was inflated and viscoelastic and the above-mentioned IOL was injected into the eye with care to insert both leaning and trailing haptics in the capsular bag. The irrigation/aspiration hand piece was reinserted to remove residual viscoelastic from the capsular bag and anterior chamber. The corneal incision was hydrated, and anterior chamber was inflated with sterile BSS via the paracentesis site, and found to be watertight. Postop medication: 1 drop of prednisolone into operative by followed by 1 drop of Cosopt into operative eye followed by 1 drop of Besivance intraoperative by other:
== END 2020-09-03 11:59 | disposition home or self-care (01) ==
LOC: SC 10:10
PROVIDERS: ATTEND Ophthalmology
DX: H25.11 Age-related nuclear cataract, right eye (principal); H43.393 Other vitreous opacities, bilateral; F41.8 Other specified anxiety disorders; M19.90 Unspecified osteoarthritis, unspecified site; J44.9 Chronic obstructive pulmonary disease, unspecified; K21.9 Gastro-esophageal reflux disease without esophagitis; I10 Essential (primary) hypertension; E78.00 Pure hypercholesterolemia, unspecified; Z87.891 Personal history of nicotine dependence; Z79.51 Long term (current) use of inhaled steroids; G47.33 Obstructive sleep apnea (adult) (pediatric); Z79.899 Other long term (current) drug therapy
CPT/HCPCS: 66984; J2250; J3490 ×2; A9270; J0171; J3010; J2405; V2632

== ENCOUNTER 2020-09-17 08:53 | Day surgery (SDC) | payer MEDICARE, BC ==
[~2020-09-17 08:53] MED LIST changes: -DORZOLAMIDE HCL 2%/TIMOLOL MALEAT 0.5% OPH SOLN 10 ML OD PRN; +DORZOLAMIDE HCL 2%/TIMOLOL MALEAT 0.5% OPH SOLN 10 ML OS PRN; -FENTANYL CITRATE INJ/PF 100 MCG/2 ML AMPUL ONE; -KETOROLAC TROMETHAMINE 0.45% 4 DROP/0.4 ML DROPERETTE OD PRN; +KETOROLAC TROMETHAMINE 0.45% 4 DROP/0.4 ML DROPERETTE OS PRN; -MIDAZOLAM 2 MG/2 ML INJ ONE; +MOXIFLOXACIN 1 MG/ML-BSS OPH SOLN 1 ML VIAL ONE; -ONDANSETRON HCL INJ/PF 4 MG/2 ML SDV ONE; -PREDNISOLONE ACETATE 1% OPH SUSP 5 ML OD PRN; +PREDNISOLONE ACETATE 1% OPH SUSP 5 ML OS PRN
[2020-09-17] MEDS ORDERED: MIDAZOLAM 2 MG/2 ML INJ ONE (09:17)
[2020-09-17] MEDS: BESIFLOXACIN HCL 0.6% OPH SUSP 5 ML BOTTLE OS PRN ×3 (09:39→10:33)
[2020-09-17] MEDS: CYCLOPENTOLATE 0.2%/PHENYLEPHRINE 1% OPH SOLN 2 ML OS PRN ×3 (09:39→09:59)
[2020-09-17] MEDS: TROPICAMIDE 1% OPH SOLN 15 ML OS PRN ×3 (09:39→09:59)
[2020-09-17] MEDS: TETRACAINE HCL 0.5% OPH SOLN 4 ML OS PRN ×3 (09:40→10:15)
--- NOTE | 2020-09-17 14:23 | Operative Report ---
Operative Report-[facility] Operative Report: DATE OF SURGERY: September 17, 2020 PREOPERATIVE DIAGNOSIS: NUCLEAR CATARACT, LEFT EYE. POSTOPERATIVE DIAGNOSIS: NUCLEAR CATARACT, LEFT EYE. PROCEDURE PERFORMED: PHACOEMULSIFICATION WITH POSTERIOR CHAMBER INTRAOCULAR LENS IMPLANT, LEFT EYE. SURGEON: Tono Lopez DO MEDICATIONS AND ANESTHESIA: Versed: IV Versed Tetracaine drops: 1 to 2 drops given as needed COMPLICATION: None INDICATIONS FOR SURGERY: Medical necessity: Best corrected visual acuity worse than 20/40 secondary to cataracts with impairment of ability to carry out needs or desired activities, blurred vision, visual distortion, reduced contrast sensitivity and/or glare with association functional impairment and supporting documentation/testing, and cataracts causing symptomatic impairment of visual functions not corrected with tolerable changes in glasses or contact lenses interfering with activities of daily life. PROCEDURE: Consent: The risks, benefits and alternatives of this procedures was discussed with the patient. The patient read and signed the consent forms, was identified and was seated in the exam chair. IOL: MX 60 E 23.0 IOL Diopters: Phacoemulsification with posterior chamber intraocular lens implant: The face was prepped with 5% povidone iodine solution, and a few drops of 5% povidone iodine solution was instilled into the inferior fornix. A non-fenestrated drape was placed over the eye and the lids were parted with the speculum. A paracentesis was made with a 15 degree blade, and 1% lidocaine MPF followed by viscoelastic was injected into the anterior chamber. A 2.4 mm metal micro- keratome was used to create a temporal clear corneal incision. A circular anterior capsulorrhexis was created, followed by hydro-dissection and hydro- delineation. The phacoemulsification hand piece was inserted and the nucleus was removed with the Phaco chop technique. The irrigation-aspiration hand piece was used to remove the residual cortex, and vacuum the posterior capsule. The capsular bag was inflated and viscoelastic and the above-mentioned IOL was injected into the eye with care to insert both leaning and trailing haptics in the capsular bag. The irrigation/aspiration hand piece was reinserted to remove residual viscoelastic from the capsular bag and anterior chamber. The corneal incision was hydrated, and anterior chamber was inflated with sterile BSS via the paracentesis site, and found to be watertight. Postop medication:1 drop of prednisolone into operative by followed by 1 drop of Cosopt into operative eye followed by 1 drop of Besivance intraoperative by Other:
== END 2020-09-17 11:05 | disposition home or self-care (01) ==
LOC: SC 08:53
PROVIDERS: ATTEND Ophthalmology
DX: H25.12 Age-related nuclear cataract, left eye (principal); Z98.41 Cataract extraction status, right eye; Z87.891 Personal history of nicotine dependence; F41.9 Anxiety disorder, unspecified; M19.90 Unspecified osteoarthritis, unspecified site; J44.9 Chronic obstructive pulmonary disease, unspecified; I10 Essential (primary) hypertension; E78.00 Pure hypercholesterolemia, unspecified; Z79.51 Long term (current) use of inhaled steroids
CPT/HCPCS: 66984; V2632; J2250; J3490 ×3; A9270; J0171